=== PATIENT | male | born 1940 | race Caucasian/White ===

== ENCOUNTER 2016-07-28 20:26 | Emergency (ER) | payer MEDICARE, BC ==
[2016-07-28 20:48] VITALS: BP 144/64
[2016-07-28] MEDS ORDERED: Acetaminophen TAB* 325 MG PO ONE (21:09)
--- NOTE | 2016-07-28 21:15 | UC ---
Upper Extremity HPI - HPI Summary HPI Summary: Patient fell when he misjudged a step, caught himself with the left arm, deformity and swelling noted. he also landed on the left knee. he is moving it and denies any pain. minor abrasion noted. - History of Current Complaint Chief Complaint: UCUpperExtremity Stated Complaint: HAND INJURY Time Seen by Provider: 07/28/16 21:08 Hx Obtained From: Patient ?: No Onset/Duration: Sudden Onset, Lasting Hours Severity Initially: Severe Severity Currently: Severe Location Of Pain: Is Discrete @ - wrist Character: Aching, Throbbing, Spasmodic Aggravating Factor(s): Movement Alleviating Factor(s): Ice Associated Signs And Symptoms: Positive: Swelling, Bruising, Weakness - Allergies/Home Medications Allergies/Adverse Reactions: Allergies Allergy/AdvReac Type Severity Reaction Status Date / Time No Known Allergies Allergy Verified 07/28/16 20:48 PMH/Surg Hx/FS Hx/Imm Hx Previously Healthy: Yes - Surgical History Surgical History: Yes Surgery Procedure, Year, and Place: 1988-GALLBLADDER REMOVED[place]. 1969- REPAIR FX ANKLE WITH PLATING- [place]. 1951-REPAIR OF FRACTURED LEG- [place] - Family History Known Family History: Negative: Cardiac Disease, Hypertension - Social History Alcohol Use: Weekly Alcohol Amount: 10 BEERS PER WEEK Substance Use Type: None Smoking Status (MU): Former Smoker Amount Used/How Often: 1 PPD X 50 YEARS Have You Smoked in the Last Year: No When Did the Patient Quit Smoking/Using Tobacco: 2010 Review of Systems Constitutional: Negative Skin: Bruising Eyes: Negative ENT: Negative Respiratory: Negative Cardiovascular: Negative Gastrointestinal: Negative Genitourinary: Negative Motor: Negative Musculoskeletal: Arthralgia, Decreased ROM, Edema, Myalgia Neurological: Negative, Headache All Other Systems Reviewed And Are Negative: Yes Physical Exam Triage Information Reviewed: Yes Appearance: Well-Nourished, Ill-Appearing, Pain Distress Vital Signs: Initial Vital Signs Temp 98.8 F 07/28/16 20:40 Pulse 62 07/28/16 20:40 Resp 18 07/28/16 20:40 BP 144/64 07/28/16 20:40 Pulse Ox 95 07/28/16 20:40 Vital Signs Reviewed: Yes Eye Exam: Normal Eyes: Positive: Conjunctiva Clear ENT Exam: Normal Dental Exam: Normal Neck exam: Normal Respiratory Exam: Normal Respiratory: Positive: Chest non-tender, Lungs clear, Normal breath sounds Cardiovascular Exam: Normal Cardiovascular: Positive: RRR, No Murmur, Pulses Normal Abdominal Exam: Normal Abdomen Description: Positive: Nontender, No Organomegaly, Soft Bowel Sounds: Positive: Present Musculoskeletal: Positive: Strength Limited @ - in left wrist and fingers, ROM Limited @ - in left wrist in all directions, finger motion also limited, Edema @ - over the radial head, Other: - good sensation and color knee motion is unaffected. no swelling or deformity noted Neurological Exam: Normal Neurological: Positive: Alert, Muscle Tone Normal Psychological Exam: Normal Skin: Positive: Other - abraision to left knee Upper Extremity Course/Dx - Course Course Of Treatment: hx obtained, exam performed, meds reviewed, xray obtained no fracture - Differential Dx/Diagnosis Differential Diagnosis/HQI/PQRI: Strain, Sprain Provider Diagnoses: wrist injury, medial wrist sprain of left arm Discharge - Discharge Plan Condition: Stable Disposition: HOME Patient Education Materials: Wrist Injury (ED) Additional Instructions: 1. use the jerry wrap for reduction of swelling. brace for pain and support. 2. Continue to use tylenol and ice for pain and fever. 3. Follow up if not improving.
--- NOTE | 2016-07-28 21:37 | RAD ---
HISTORY: Swelling, fall, swelling, pain COMPARISONS: None VIEWS: 4, Frontal, lateral, and oblique views of the left wrist FINDINGS: BONE DENSITY: Normal. BONES: There is no displaced fracture. 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 There is osteoarthritis of the radiocarpal articulation and the distal radioulnar articulation. There is osteoarthritis of the first MCP joint ALIGNMENT: There is no dislocation. SOFT TISSUES: Unremarkable. OTHER FINDINGS: None. IMPRESSION: OSTEOARTHRITIS. NO ACUTE OSSEOUS INJURY. IF SYMPTOMS PERSIST, RECOMMEND REPEAT IMAGING.
== END 2016-07-28 21:54 | disposition home or self-care (01) ==
LOC: UCCORT 20:26
DX: S80.212A Abrasion, left knee, initial encounter (principal); S63.502A Unspecified sprain of left wrist, initial encounter; W10.9XXA Fall (on) (from) unspecified stairs and steps, initial encounter; Y93.9 Activity, unspecified; Y92.9 Unspecified place or not applicable; Y99.9 Unspecified external cause status; Z87.891 Personal history of nicotine dependence
CPT/HCPCS: 99213; A9270-GY; G0463

== ENCOUNTER 2018-05-20 11:05 | Emergency (ER) | payer MEDICARE, BC ==
--- NOTE | 2018-05-20 11:36 | UC ---
Dizzy HPI HPI Summary: hypotensive since this morning had hid meds this morning , felt lightheaded after one hr checked his bp was 108/60 denies any chest pain , no palpitation hx of afib cardioverted in [place] a few months ago, no fever, no chills - History Of Current Complaint Chief Complaint: UCGeneralIllness Stated Complaint: LOW BP Time Seen by Provider: 05/20/18 11:18 Hx Obtained From: Patient Onset/Duration: Gradual Onset, Lasting Hours - 2, Resolved Timing: Constant Severity Initially: Moderate Severity Currently: None Pain Intensity: 0 Character: Lightheaded Aggravating Factor(s): Nothing Alleviating Factor(s): Nothing Associated Signs And Symptoms: Negative: Nausea, Vomiting, Diaphoresis, Tinnitus , Chest Pain, SOB, Palpitations, Unsteady Gait, Visual Changes, Decreased Oral Intake, Change In Medication, Change In Diet, OTC Medications - Risk Factors Cardiac Risk Factors: Hypertension - Allergies/Home Medications Allergies/Adverse Reactions: Allergies Allergy/AdvReac Type Severity Reaction Status Date / Time No Known Allergies Allergy Verified 05/20/18 11:07 Home Medications: Home Medications Apixaban* [Eliquis*] 5 mg PO BID 05/20/18 [History Confirmed 05/20/18] PMH/Surg Hx/FS Hx/Imm Hx - Additional Past Medical History Additional PMH: cardioverted in [place] a few months ago, Cardiovascular History: Hypertension, Atrial Fibrillation - Surgical History Surgical History: Yes Surgery Procedure, Year, and Place: 1988-GALLBLADDER REMOVED-[place]. 1969- REPAIR FX ANKLE WITH PLATING- [place]. 1951-REPAIR OF FRACTURED LEG- [place] - Family History Known Family History: Negative: Cardiac Disease, Hypertension - Social History Alcohol Use: Weekly Alcohol Amount: 3 cans/ 3 times per week Substance Use Type: None Smoking Status (MU): Former Smoker Amount Used/How Often: 1 PPD X 50 YEARS Have You Smoked in the Last Year: No When Did the Patient Quit Smoking/Using Tobacco: 2010 Review of Systems All Other Systems Reviewed And Are Negative: Yes Constitutional: Positive: Negative Skin: Positive: Negative Eyes: Positive: Negative ENT: Positive: Negative Cardiovascular: Positive: Negative. Negative: Palpitations, Chest Pain Neurological: Positive: Weakness Is Patient Immunocompromised?: No Physical Exam Triage Information Reviewed: Yes Appearance: Well-Appearing, No Pain Distress, Obese Vital Signs: Initial Vital Signs Temp 97.6 F 05/20/18 11:09 Pulse 70 05/20/18 11:09 Resp 20 05/20/18 11:09 BP 146/77 05/20/18 11:09 Pulse Ox 97 05/20/18 11:09 Vital Signs Reviewed: Yes Eye Exam: Normal Eyes: Positive: Conjunctiva Clear ENT: Positive: Normal ENT inspection, Hearing grossly normal, Pharynx normal Neck: Positive: Supple, Nontender, No Lymphadenopathy Respiratory: Positive: Chest non-tender, Lungs clear, Normal breath sounds Cardiovascular: Positive: No Murmur, Bradycardia, Other: - irrigulay beats Abdominal Exam: Normal Abdomen Description: Positive: Nontender, Soft Bowel Sounds: Positive: Present Neurological: Positive: Alert Skin Exam: Normal Diagnostics - EKG Cardiac Rate: Bradycardia Ectopy: None ST Segment: Normal Dizzy Course/Dx - Course Course Of Treatment: will have the pt. go to [facility] ED for evaluation and tx - Differential Dx/Diagnosis Provider Diagnosis: Bradycardia Discharge - Sign-Out/Discharge Documenting (check all that apply): Patient Departure All imaging exams completed and their final reports reviewed: No Studies - Discharge Plan Condition: Good Disposition: TRANS HIGHER LVL OF CARE FAC Referrals: Mayank Menjivar MD [Primary Care Provider] - - Billing Disposition and Condition Condition: GOOD Disposition: Trans Higher Lvl of Care Fac
[2018-05-20 11:49] VITALS: BP 136/70
== END 2018-05-20 11:55 | disposition short-term general hospital (02) ==
LOC: UCEAST 11:05
DX: R00.1 Bradycardia, unspecified (principal); I10 Essential (primary) hypertension; I48.91 Unspecified atrial fibrillation; Z87.891 Personal history of nicotine dependence
CPT/HCPCS: 93005; 99212; G0463

== ENCOUNTER 2018-05-20 12:14 | Observation (INO) | payer MEDICARE, BC ==
--- NOTE | 2018-05-20 12:37 | ED ---
Palpitations / Dysrhythmia - HPI Summary HPI Summary: A 78 y/o male accompanied by his presents to [facility] with a chief complaint of a low heart rate while at urgent care earlier today. Per , the patients pulse was 44 bpm. They also report that the patients BP was low. The patient reports that he was lightheaded and dizzy intermittently for about one week. He also states that he feels tingling. He denies CP, SOB or nausea. Per , the patient had a cardioversion at [facility] for A-flutter 02/20/18. The patient is taking Eliquis. - History of Current Complaint Chief Complaint: EDDysrhythmPalp Hx Obtained From: Patient, Family/[place] Onset/Duration: Sudden Onset, Lasting Days, Still Present Timing: Intermittent Episodes Lasting: - intermittent episodes of dizziness/ lightheadedness for a week, low HR and BP earlier today. Severity Initially: Mild Severity Currently: Mild Character: Slow Aggravating: Nothing Alleviating: Nothing Associated Signs & Symptoms: Negative - CP, SOB, N/V, Lightheadedness, Dizzy - Allergy/Home Medications Allergies/Adverse Reactions: Allergies Allergy/AdvReac Type Severity Reaction Status Date / Time No Known Allergies Allergy Verified 05/20/18 12:20 Home Medications: Home Medications Acetaminop/Codeine 30 MG TAB* [Tylenol/Codeine 30 MG TAB*] 1 tab PO Q6HR PRN 06/04 [History Confirmed 05/20/18] Irbesartan (NF) [Avapro (NF)] 300 mg PO DAILY 05/20/18 [History Confirmed ] PMH/Surg Hx/FS Hx/Imm Hx Cardiovascular History: Reports: Hx Hypertension, Other Cardiovascular Problems/ Disorders - AV BLOCK Respiratory History: Denies: Hx Asthma, Hx Chronic Obstructive Pulmonary Disease (COPD) Sensory History: Reports: Hx Contacts or Glasses - GLASSES Denies: Hx Hearing Aid Opthamlomology History: Reports: Hx Contacts or Glasses - GLASSES Psychiatric History: Reports: Hx Anxiety - NO MEDICATION FOR - Cancer History Cancer Type, Location and Year: SKIN - Surgical History Surgery Procedure, Year, and Place: 1988-GALLBL[place]DER REMOVED[place]. 1969- REPAIR FX ANKLE WITH PLATING- [place]. 1951-REPAIR OF FRACTURED LEG- [place] Hx Anesthesia Reactions: No Infectious Disease History: No Infectious Disease History: Denies: Traveled Outside the [place] in Last 30 Days - Family History Known Family History: Negative: Cardiac Disease, Hypertension - Social History Alcohol Use: Weekly Alcohol Amount: 3 cans/ 3 times per week Substance Use Type: Reports: None Smoking Status (MU): Former Smoker Amount Used/How Often: 1 PPD X 50 YEARS Have You Smoked in the Last Year: No Review of Systems Negative: Fever Positive: Other - positive: low heart rate DIETETIC TECH. Negative: Chest Pain Negative: Shortness Of Breath Positive: Nausea Neurological: Other - positive: lightheadedness, dizziness Positive: Paresthesia All Other Systems Reviewed And Are Negative: Yes Physical Exam - Summary Physical Exam Summary: VITAL SIGNS: Reviewed. GENERAL: Patient is a well-developed and nourished MALE who is lying comfortable in the stretcher. Patient is not in any acute respiratory distress. HEAD AND FACE: No signs of trauma. No ecchymosis, hematomas or skull depressions. No sinus tenderness. EYES: PERRLA, EOMI x 2, No injected conjunctiva, no nystagmus. EARS: Hearing grossly intact. Ear canals and tympanic membranes are within normal limits. MOUTH: Oropharynx within normal limits. NECK: Supple, trachea is midline, no adenopathy, no JVD, no carotid bruit, no c- spine tenderness, neck with full ROM. CHEST: Symmetric, no tenderness at palpation LUNGS: Clear to auscultation bilaterally. No wheezing or crackles. CVS: Regular rate and rhythm, S1 and S2 present, no murmurs or gallops appreciated. ABDOMEN: Soft, non-tender. No signs of distention. No rebound no guarding, and no masses palpated. Bowel sounds are normal. EXTREMITIES: FROM in all major joints, no edema, no cyanosis or clubbing. NEURO: Alert and oriented x 3. No acute neurological deficits. Speech is normal and follows commands. SKIN: Dry and warm Triage Information Reviewed: Yes Vital Signs On Initial Exam: Initial Vitals Temp Pulse Resp BP Pulse Ox 97 F 54 16 145/96 96 05/20/18 12:15 05/20/18 12:15 05/20/18 12:15 05/20/18 12:15 05/20/18 12:15 Vital Signs Reviewed: Yes - Eland Coma Scale Best Eye Response: 4 - Spontaneous Best Motor Response: 6 - Obeys Commands Best Verbal Response: 5 - Oriented Coma Scale Total: 15 Diagnostics - Vital Signs Vital Signs Temp Pulse Resp BP Pulse Ox 05/20/18 12:15 97 F 54 16 145/96 96 - Laboratory Result Diagrams: 05/20/18 13:07 05/20/18 13:07 Lab Statement: Any lab studies that have been ordered have been reviewed, and results considered in the medical decision making process. - CT Brain CT Interpretation Completed By: Radiologist Summary of CT Findings: NO EVIDENCE FOR ACUTE INTRACRANIAL ABNORMALITY. ED physician has reviewed this imaging report. - EKG 12:27 Cardiac Rate: NL - 68 bpm EKG Rhythm: Sinus Rhythm Summary of EKG Findings: NSR at 68 bpm, no ST elevations, with PVCs, Prolonged NJ interval Course/Dx - Course Assessment/Plan: This patient is a 78-year-old male who presents to the emergency department with chief complaint having dizziness, shortness of breath and feeling that he is going to pass out. Patient went to the urgent care with he was found to be bradycardic. They report 40 bpm. Test results without any significant abnormality except for an INR 1.17, PTT of 42, glucose is 109. Head CT shows no evidence for acute intracranial abnormality. EKG is a normal sinus rhythm at 60 bpm with first-degree block and occasional PVCs. I discussed the EKG with Dr. Villa that he agrees with the interpretation. Because of the symptoms present I discussed my physical exam and findings with Dr. Khalil from the hospital services was accepted the patient for admission. The patient is hemodynamically stable alert and oriented 3. - Diagnoses Provider Diagnoses: Symptomatic bradycardia - Physician Notifications Discussed Care Of Patient With: Mohit Villa Time Discussed With Above Provider: 12:43 Instructed by Provider To: Other - Agrees that patient has a first degree block but nothing else. Discharge - Sign-Out/Discharge Documenting (check all that apply): Patient Departure - admit Patient Received Moderate/Deep Sedation with Procedure: No - Discharge Plan Condition: Fair Disposition: ADMITTED TO [facility] - Billing Disposition and Condition Condition: FAIR Disposition: Admitted to [facility] - Attestation Statements Document Initiated by Scribe: Yes Documenting Scribe: Anthony Joel Provider For Whom Scribe is Documenting (Include Credential): Td Cool MD Scribe Attestation: I, Anthony Joel, scribed for Td Cool MD on 05/20/18 at 1826. Scribe Documentation Reviewed: Yes Provider Attestation: The documentation as recorded by the noheliaibartemio, Anthony Joel accurately reflects the service I personally performed and the decisions made by me, Td Cool MD Status of Scribe Document: Viewed Consult Consult: At 14:[address] Khalil, hospitalist, who accepted the patient for admission.
[2018-05-20 13:22] LABS: ABS Basophils 0.1 10^3/ul (0-0.2); ABS Eosinophils 0.1 10^3/ul (0-0.6); ABS Lymphocytes 0.8 10^3/ul (1.0-4.8); ABS Monocytes 0.5 10^3/ul (0-0.8); ABS Neutrophils 5.8 10^3/ul (1.5-7.7); ABS Nucleated RBC 0 10^3/ul; Eosinophil % 1.7 %; Hematocrit 41 % (36-46); Hemoglobin 13.7 g/dL (14.0-18.0); Lymphocyte % 11.2 %; Mean Corpuscular HGB Conc 34 g/dL (31-36); Mean Corpuscular Hemoglobin 28 pg (27-31); Mean Corpuscular Volume 83 fL (80-94); Nucleated Red Blood Cells % 0.2; Platelet Count 297 10^3/uL (150-450); Red Blood Count 4.88 10^6 /uL (4.18-5.48); Red Cell Distribution Width 16 % (10.5-15); White Blood Count 7.3 10^3/uL (3.5-10.8)
[2018-05-20 13:39] LABS: Albumin 3.9 g/dL (3.2-5.2); Albumin/Globulin Ratio 1.4 (1-3); BUN/Creatinine Ratio 13.8 (8-20); Calcium 9.4 mg/dL (8.6-10.3); EGFR African American 144.1 (>60); EGFR Non-African American 119.1 (>60); Globulin 2.8 g/dL (2-4); Magnesium 2.1 mg/dL (1.9-2.7); Potassium 4.1 mmol/L (3.5-5.0); Total Bilirubin 0.7 mg/dL (0.2-1.0); Total Protein 6.7 g/dL (6.4-8.9)
[2018-05-20 13:41] LABS: Activated Partial Thrombo Time 42.2 seconds (26.0-36.3); INR 1.17 (0.77-1.02)
[2018-05-20 13:44] LABS: CKMB ng/mL 0.8 ng/mL (0.6-6.3)
[2018-05-20] MEDS ORDERED: Magnesium Hydroxide LIQ* 30 ML UDC PO PRN (14:56)
[2018-05-20] MEDS ORDERED: Acetaminophen TAB* 325 MG PO PRN (14:56)
[2018-05-20] MEDS ORDERED: Acetaminop/Codeine 30 MG TAB* 1 TAB (300 MG/30 MG) PO PRN (15:00)
--- NOTE | 2018-05-20 16:23 | HP ---
CC: Dr. Mayank Menjivar; Dr. Leo Villa, Cardiology * ADMISSION HISTORY AND PHYSICAL: DATE OF ADMISSION: 05/20/18 PRIMARY CARE PROVIDER: Dr. Mayank Menjivar. ATTENDING FOR THIS ADMISSION: Dr. Jacob Khalil.* (DICTATED BY MIRANDA HAYNES NP) CHIEF COMPLAINT: Dizziness, hypotension, and bradycardia. HISTORY OF PRESENT ILLNESS: This is a very pleasant 78-year-old male patient who felt dizzy and lightheaded after taking his morning medications. He checked his blood pressure at home and it was 108/60, which is very low for him and this was approximately 1 hour after taking his morning meds. He went to urgent care to be evaluated as the patient does have history of atrial fibrillation and had recently been cardioverted in February. At urgent care, the patient was found to be bradycardic and was sent to the emergency department for evaluation. In the ED, the patient was with a heart rate in the 40s, appeared to possibly have some pauses versus a heart block. He definitely has a first-degree heart block. It is questionable whether the patient was going into a second-degree heart block and symptomatic from these changes. For these reasons, we were asked to evaluate the patient for observation admission. PAST MEDICAL HISTORY: Significant for hypertension, atrial fibrillation. PAST SURGICAL HISTORY: Significant for cholecystectomy in 1988, ankle fracture with plating in 1969, and also his recent cardioversion in February. The patient had 9 teeth extracted 1 week ago. HOME MEDICATIONS: 1. Tylenol with Codeine 1 tab p.o. q.6 hours as needed. 2. Hytrin cap 1 mg p.o. in the morning. 3. Metoprolol succinate XL 50 mg p.o. daily. 4. Irbesartan 300 mg p.o. daily. 5. Atorvastatin 20 mg daily. 6. Apixaban 5 mg p.o. b.i.d. ALLERGIES: No known drug allergies. FAMILY HISTORY: Some uncles with strokes. No reported medical history for his mother or his father. SOCIAL HISTORY: The patient drinks alcohol recreationally. Was a former smoker , 1 pack per day for 50 years, quit in 2010. Denies any illicit drug use. He lives at home with his , Katina, who is his healthcare proxy. REVIEW OF SYSTEMS: At this time, the patient still feels moderately dizzy, but denies any fever, fatigue, or chills. No shortness of breath, no chest pains. No abdominal pain, no nausea, no vomiting, and no further constitutional complaints. PHYSICAL EXAMINATION GENERAL: The patient is awake, alert, in no acute distress. VITAL SIGNS: Blood pressure 122/62, heart rate is variable between 53 and 63, respiratory rate 18, O2 saturation is 96% on room air, temperature is 97.0. HEENT: The patient is atraumatic, normocephalic. PERRLA with nonicteric sclerae. He does wear glasses. Oral mucosa is moist. Tongue is midline. NECK: Supple, nontender. No JVD noted. No thyromegaly appreciated and no carotid bruit auscultated. LUNGS: Clear bilaterally to auscultation, slightly diminished at the bases. Otherwise, no adventitious breath sounds noted. CARDIOVASCULAR: S1, S2 present. Rate is bradycardic. Rhythm is regular. No murmurs, gallops, or rubs noted. ABDOMEN: Soft, nontender, and nondistended. Moderately obese. Positive bowel sounds in all 4 quadrants. No organomegaly noted. : Deferred. MUSCULOSKELETAL: There is no clubbing, no cyanosis, no edema. He has +2 distal pulses palpable, full range of motion, steady gait. Gross motor and sensation are intact. NEUROLOGIC: He is grossly intact with no focal deficits. PSYCHIATRIC: Cooperative and appropriate. DIAGNOSTIC STUDIES/LAB DATA: WBCs 7.3, RBCs 4.88, hemoglobin 13.7, hematocrit 41, platelets are 297. Sodium 138, potassium 4.1, chloride 105, CO2 of 27, BUN 9, creatinine 0.65, GFR is 119.1, glucose 109, lactic acid 0.8, calcium 9.4, magnesium 2.1. Bilirubin 0.70, AST 15, ALT 14, alk phos 98. Total creatine kinase 23, CK-MB is 0.8, troponin is negative at 0.00. Total protein 6.7, albumin 3.9, globulin 2.8, albumin/globulin ratio is 1.4. TSH is pending. INR is 1.17. Imaging: CT of the brain shows no acute intracranial process. Chest x-ray shows some stigmata of obstructive lung disease changes, but is otherwise clear. His last EKG at approximately 1 o'clock today showed him back in sinus rhythm with a ventricular trigeminy, prolonged AK interval. IMPRESSION: Mr. Goodman is a 78-year-old male patient with history of atrial fibrillation, who now presents with bradycardia and dizziness. PLAN: The patient will be admitted to observation service. 1. Bradycardia and dizziness. The 3 EKGs that were performed in the emergency department initially did show some significant bradycardia and a first-degree heart block. At that point, we were questioning whether the patient actually had a second-degree heart block prior to arrival. I have reached out to Dr. Villa of Cardiology, who has evaluated the EKGs. At this point, his symptoms may just be related to his beta-autumn, which will be held. We can restart beta-autumn at half in the dose tomorrow and continue to monitor the patient's heart rate and blood pressure. 2. History of hypertension. He will be continued on his home medications, but again holding the metoprolol. 3. History of hyperlipidemia. Continue his Lipitor daily. 4. History of paroxysmal atrial fibrillation. The patient will be continued on Eliquis for anticoagulation. 5. Diet: Heart-healthy, caffeine okay as tolerated. 6. Activity: Ambulate as tolerated. 7. Consults: Dr. Leo Villa of Cardiology. The rest of the patient's course will be determined by further diagnostics, laboratories, and any other input from other providers as warranted during this admission. We will continue to monitor the patient overnight and appreciate any further recommendations from Cardiology. Also of note, we have requested records from [facility] of the patient's most recent echo, stress test, and cardioversion in February. Per the patient's report, his nuclear stress and echo were both normal, so at this point, we should not have to repeat those exams. We will evaluate the reports when they are available. MIRANDA HAYNES, GENIE [id number]/[facility] #: [id number] [place]
[2018-05-20 16:39] LABS: Urine Appearance Clear; Urine Bilirubin Negative (Negative); Urine Blood Negative (Negative); Urine Color Yellow; Urine Glucose Negative (Negative); Urine Ketones Negative (Negative); Urine Nitrite Negative (Negative); Urine Protein Negative (Negative); Urine Specific Gravity 1.016 (1.010-1.030); Urine Urobilinogen Negative (Negative)
--- NOTE | 2018-05-20 17:39 | CONS ---
CC: Hospitalist Service; Dr. Menjivar; Dr. Smith; Dr. Villa * CARDIOLOGY CONSULT: DATE OF CONSULT: 05/20/18 HISTORY OF PRESENT ILLNESS: The patient is a 78-year-old male patient, who followed up with Dr. Smith from cardiology standpoint, had atrial fibrillation, was found incidental finding and then had cardioversion as per the patient's history by [facility] in February 2018. According to the patient and the family, he had full cardiac evaluation including echocardiogram and nuclear stress test and was told "they were normal." He had no history of chest pain and no shortness of breath, no syncope. He does have history of hypertension as well as history of hyperlipidemia and he is on medical treatment. He gives no history of myocardial infarction. He gives no history of congestive heart failure. He gives no palpitations, no irregularity. He gives no fever, no chills, no nausea, no vomiting, no hematochezia, no skin rash , no abdominal pain, no orthopnea is appreciated. No swelling in the lower extremities. Today, according to the patient, he felt "off." There is some dizziness, but overall he said he did not feel well. They took blood pressure at home and it was low at 108. He was advised to go to the [facility] and it was found his heart rate is slow in the 40s. No syncope. There were some concerns about the first-degree AV block on EKG. He came into the emergency room and then subsequently he was admitted for further observation. He feels much better since his presentation now. PAST SURGICAL HISTORY: Includes history of cholecystectomy in 1988 and ankle fracture in the past and cardioversion in February 2018. MEDICATIONS AT HOME: Include: 1. Hytrin 1 mg in the morning. 2. Metoprolol XL 50 mg daily. 3. Irbesartan 300 mg daily. 4. Lipitor 20 mg daily. 5. Eliquis 5 mg twice a day. ALLERGIES: No known drug allergies. FAMILY HISTORY: There is no family history of premature coronary artery disease. SOCIAL HISTORY: He drinks alcohol socially. He used to smoke, he quit about 7 years ago according to the patient. No history of illicit drug use. He lives with his . REVIEW OF SYSTEMS: His review of all other systems essentially is negative. PHYSICAL EXAM: On exam, he is awake, alert, and oriented. He is not in acute distress. He had no cardiac symptoms at the moment. Vitals: Blood pressure is 120/60, he is in sinus rhythm, his heart rate is ranging in the 50s to the 60s, he is afebrile. Ears, Nose, and Throat: Essentially benign. Neck: Supple. JVP is not elevated. No carotid bruits. No masses in the neck are appreciated. Chest: Clear to auscultation. No rales, no wheeze. No added sounds appreciated. Heart: Normal S1, S2. No added sounds. No gallops, no rubs. Abdomen: Benign, soft. Positive bowel sounds. Extremities: No edema, no cyanosis, and no clubbing. Skin exam is normal. Psych: Normal affect and mood. 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 DIAGNOSTIC STUDIES/LAB DATA: He has multiple EKGs. They show sinus rhythm, sinus bradycardia. First-degree AV block definitely is there. Multiple PACs and PVCs are there, a questionable dropped beat that was after a PVC. His labs showed the following: His labs from today, white blood cell 7.3, hemoglobin 13.7, hematocrit 41, platelets 297. His sodium 138, potassium 4.1, BUN 9, creatinine 0.65. LFTs normal. Troponin 0. TSH normal at 1. Magnesium 2.1. His PTT 42.2. IMPRESSION: The patient is a 78-year-old male patient with: 1. Presentation of not feeling well with hypotension and bradycardia. 2. Resting sinus bradycardia with definitely first-degree atrioventricular block and some occasional premature atrial contractions, premature ventricular contractions. Cannot ruled out a dropped beat after his premature ventricular contraction. 3. History of atrial fibrillation, incidental finding, cardioversion February 2018. 4. Systemic arterial hypertension. 5. Obesity. 6. Hyperlipidemia. 7. As per the patient's history, had cardiac evaluation in February by an echo and nuclear Myoview stress test and was told "normal." PLAN: I discussed with the hospitalist service. I agree with hospitalization and monitoring on the telemetry monitoring for any significant second or third- degree AV block. I advised holding his beta-autumn, metoprolol for now and reevaluate. His thyroid, TSH, electrolytes are within normal limits. Stay hydrated. Keep a close eye on his blood pressure accordingly and we will obtain the records from [facility] for his cardiac evaluation. I answered all their concerns and questions up to their satisfaction. TIME SPENT: More than half of at least 60 to 65 plus minutes was in the education and counseling mode, [id number], evaluating the above, and making further recommendations. [id number]/CPS #: [id number] ELEANOR
[2018-05-20] MEDS: Apixaban* 5 MG TAB PO SCH (20:21)
--- NOTE | 2018-05-21 00:26 | PN ---
Progress Note - Progress Note Date of Service: 05/21/18 Note: Per RN continuing to drop a beat infrequently. Per cards recommendation will d/ c betablocker for now.
[2018-05-21] MEDS ORDERED: Metoprolol Succinate XL TAB* 25 MG PO SCH ×2 (09:00→12:02)
[2018-05-21] MEDS ORDERED: Atorvastatin* 20 MG TAB PO SCH (09:00)
[2018-05-21] MEDS ORDERED: Terazosin CAP* 1 MG PO SCH (09:00)
[2018-05-21] MEDS ORDERED: Losartan TAB* 25 MG PO SCH (09:00)
[2018-05-21] MEDS: Apixaban* 5 MG TAB PO SCH (09:20)
--- NOTE | 2018-05-21 10:54 | PN ---
<Shannon Thao - Last Filed: 05/21/18 11:09> Subjective Date of Service: 05/21/18 - f/u for symptomatic bradycardia Interval History: no events last night, patient sitting in chair with and friend in room. He states he came in yesterday after feeling lightheaded and noting a pulse of 40 on his BP machine. He states symptoms have not reoccurred. heart rate has improved since Bblocker therapy has been held. no c/o chest pain. He states he occasionally he will get exertion chest tightness with walking but this has not occurred in a week. usually episode last < 1 min when it does occur. no c/o SOB , MITCHELL, palpitations, sensation of heart racing, edema. Medications Active Medications: Acetaminophen (Tylenol Tab*) 650 mg PO Q4H PRN PRN Reason: FEVER/PAIN Last Admin: 05/20/18 23:28 Dose: 650 mg Acetaminophen/Codeine Phosphate (Tylenol/Codeine 30 Mg Tab*) 1 tab PO Q6HR PRN PRN Reason: PAIN Apixaban (Eliquis*) 5 mg PO BID [facility] Last Admin: 05/21/18 09:20 Dose: 5 mg Atorvastatin Calcium (Lipitor*) 20 mg PO DAILY [facility] Last Admin: 05/21/18 09:21 Dose: 20 mg Losartan Potassium (Cozaar Tab*) 100 mg PO DAILY [facility] Last Admin: 05/21/18 09:21 Dose: 100 mg Magnesium Hydroxide (Milk Of Magnesia Liq*) 30 ml PO Q4H PRN PRN Reason: CONSTIPATION Terazosin HCl (Hytrin Cap*) 1 mg PO QAM [facility] Last Admin: 05/21/18 09:21 Dose: 1 mg Objective Vital Signs: Temp Pulse Resp BP Pulse Ox 97.5 F 86 20 134/72 98 05/21/18 08:08 05/21/18 08:08 05/21/18 08:08 05/21/18 08:08 05/21/18 08:08 Oxygen Devices in Use Now: None Appearance: sitting in chair, well nourished, NAD, A+O x3 Ears/Nose/Mouth/Throat: NL Teeth, Lips, Gums Neck: NL Appearance and Movements; NL JVP Respiratory: Symmetrical Chest Expansion and Respiratory Effort, Clear to Auscultation Cardiovascular: NL Sounds; No Murmurs; No JVD, No Edema Abdominal: NL Sounds; No Tenderness; No Distention Extremities: No Edema Skin: No Rash or Ulcers Neurological: Alert and Oriented x 3 Lines/Tubes/Other Access: Clean, Dry and Intact Peripheral IV Laboratory Results: 05/20/18 13:07 05/20/18 13:07 INR (Anticoag Therapy) 1.17 (0.77-1.02) H 05/20/18 13:07 APTT 42.2 seconds (26.0-36.3) H 05/20/18 13:07 Total Bilirubin 0.70 mg/dL (0.2-1.0) 05/20/18 13:07 AST 15 U/L (13-39) 05/20/18 13:07 ALT 14 U/L (7-52) 05/20/18 13:07 Alkaline Phosphatase 98 U/L (34-104) 05/20/18 13:07 CK-MB (CK-2) 0.8 ng/mL (0.6-6.3) 05/20/18 13:07 Total Protein 6.7 g/dL (6.4-8.9) 05/20/18 13:07 Albumin 3.9 g/dL (3.2-5.2) 05/20/18 13:07 Globulin 2.8 g/dL (2-4) 05/20/18 13:07 Albumin/Globulin Ratio 1.4 (1-3) 05/20/18 13:07 TSH 1.00 mcIU/mL (0.34-5.60) 05/20/18 13:07 05/20/18 05/20/18 05/20/18 13:07 16:17 19:57 Troponin I 0.00 0.01 0.00 Laboratory Results - last 24 hr 05/20/18 05/20/18 05/20/18 13:07 13:07 13:07 WBC 7.3 RBC 4.88 Hgb 13.7 L Hct 41 MCV 83 MCH 28 MCHC 34 RDW 16 H Plt Count 297 MPV 9.0 Neut % (Auto) 78.7 Lymph % (Auto) 11.2 [place] % (Auto) 7.5 Eos % (Auto) 1.7 Baso % (Auto) 0.9 Absolute Neuts (auto) 5.8 Absolute Lymphs (auto) 0.8 L Absolute Monos (auto) 0.5 Absolute Eos (auto) 0.1 Absolute Basos (auto) 0.1 Absolute Nucleated RBC 0 Nucleated RBC % 0.2 INR (Anticoag Therapy) 1.17 H APTT 42.2 H Sodium 138 Potassium 4.1 Chloride 105 Carbon Dioxide 27 Anion Gap 6 BUN 9 Creatinine 0.65 L Est GFR ( Amer) 144.1 Est GFR (Non-Af Amer) 119.1 BUN/Creatinine Ratio 13.8 Glucose 109 H Lactic Acid Calcium 9.4 Magnesium 2.1 Total Bilirubin 0.70 AST 15 ALT 14 Alkaline Phosphatase 98 Total Creatine Kinase 23 CK-MB (CK-2) 0.8 Troponin I 0.00 Total Protein 6.7 Albumin 3.9 Globulin 2.8 Albumin/Globulin Ratio 1.4 TSH 1.00 Urine Color Urine Appearance Urine pH Ur Specific [place] Urine Protein Urine Ketones Urine Blood Urine Nitrate Urine Bilirubin Urine Urobilinogen Ur Leukocyte Esterase Urine Glucose 05/20/18 05/20/18 05/20/18 13:07 16:17 16:25 WBC RBC Hgb Hct MCV MCH MCHC RDW Plt Count MPV Neut % (Auto) Lymph % (Auto) [place] % (Auto) Eos % (Auto) Baso % (Auto) Absolute Neuts (auto) Absolute Lymphs (auto) Absolute Monos (auto) Absolute Eos (auto) Absolute Basos (auto) Absolute Nucleated RBC Nucleated RBC % INR (Anticoag Therapy) APTT Sodium Potassium Chloride Carbon Dioxide Anion Gap BUN Creatinine Est GFR ( Amer) Est GFR (Non-Af Amer) BUN/Creatinine Ratio Glucose Lactic Acid 0.8 Calcium Magnesium Total Bilirubin AST ALT Alkaline Phosphatase Total Creatine Kinase CK-MB (CK-2) Troponin I 0.01 Total Protein Albumin Globulin Albumin/Globulin Ratio TSH Urine Color Yellow Urine Appearance Clear Urine pH 6.0 Ur Specific [place] 1.016 Urine Protein Negative Urine Ketones Negative Urine Blood Negative Urine Nitrate Negative Urine Bilirubin Negative Urine Urobilinogen Negative Ur Leukocyte Esterase Negative Urine Glucose Negative 05/20/18 19:57 WBC RBC Hgb Hct MCV MCH MCHC RDW Plt Count MPV Neut % (Auto) Lymph % (Auto) [place] % (Auto) Eos % (Auto) Baso % (Auto) Absolute Neuts (auto) Absolute Lymphs (auto) Absolute Monos (auto) Absolute Eos (auto) Absolute Basos (auto) Absolute Nucleated RBC Nucleated RBC % INR (Anticoag Therapy) APTT Sodium Potassium Chloride Carbon Dioxide Anion Gap BUN Creatinine Est GFR ( Amer) Est GFR (Non-Af Amer) BUN/Creatinine Ratio Glucose Lactic Acid Calcium Magnesium Total Bilirubin AST ALT Alkaline Phosphatase Total Creatine Kinase CK-MB (CK-2) Troponin I 0.00 Total Protein Albumin Globulin Albumin/Globulin Ratio TSH Urine Color Urine Appearance Urine pH Ur Specific [place] Urine Protein Urine Ketones Urine Blood Urine Nitrate Urine Bilirubin Urine Urobilinogen Ur Leukocyte Esterase Urine Glucose EKG Data: Todays ECg reviewed; NSR rate 64, [place] interval 303. Telemetry reviewed; frequent PVCs Sinus rhythm with prolonged [place] interval. rate currently in 70's ECG from 05/17/2018 at 1237; Sinus rhythm rate 64 [place] interval 293 and regular. there is ventricular trigeminy. Assessment/Plan #1 symptomatic bradycardia with prolonged [place] interval. No evidence of high degree AVB. Topprol 50/day has been held since admission. Heart rate did improve. Nocturnally he has bradycardia hear rate 40 with brief sinus pauses < 3 seconds. will arrange outpatient 30 day EM with primary varnish mixer Dr. Smith. he will need to f/u with him in 7-10 days. He denies recent adjustment in medications or over the counter medications. He has known AVB. #2 h/o AFL; In NSR. Chads Vasc 3 on Eliquis 5mg PO BID. He underwent successful CV 02/2018. TFTs normal. He is to f/u with Dr. Smith. He would likely benefit from VIGNESH evaluation. #3 h/o HTN; BP today 134/72 on Losartan 100mg/day. He had diastolic dysfunction noted on recent outpatient echo. Recommend aggressive BP control. #4 h/o HLD; On Lipitor therapy. #5 h/o PVCs. Bblocker to be reduced to 12.5mg/day. He is to have outpatient 30 day EM and f/u with primary varnish mixer. He had a low risk lexiscan stress test 03/09/2018 patient exercised for 4 minutes with resting HTN. Normal perfusion. troponin negative x3 during stay. k+ stable #6 disposition pending course. D/W Dr. Scott who agrees with plan of care. Will monitor on Telemetry after first dose of Toprol 12.5mg/day if tolerating will sign off and have him see primary varnish mixer ( Dr. Smith) with 30 day em to be arranged through [facility]. [facility] whom I personally spoke with on the phone today. He informed me that the EM will be mailed to his home. Per Dr. Smith the patient has already referral for Dr. Kemp for evaluation of VIGNESH Attending: Gary Scott <Gary Scott - Last Filed: 05/21/18 14:22> Medications Active Medications: Acetaminophen (Tylenol Tab*) 650 mg PO Q4H PRN PRN Reason: FEVER/PAIN Last Admin: 05/20/18 23:28 Dose: 650 mg Acetaminophen/Codeine Phosphate (Tylenol/Codeine 30 Mg Tab*) 1 tab PO Q6HR PRN PRN Reason: PAIN Apixaban (Eliquis*) 5 mg PO BID [facility] Last Admin: 05/21/18 09:20 Dose: 5 mg Atorvastatin Calcium (Lipitor*) 20 mg PO DAILY [facility] Last Admin: 05/21/18 09:21 Dose: 20 mg Losartan Potassium (Cozaar Tab*) 100 mg PO DAILY [facility] Last Admin: 05/21/18 09:21 Dose: 100 mg Magnesium Hydroxide (Milk Of Magnesia Liq*) 30 ml PO Q4H PRN PRN Reason: CONSTIPATION Metoprolol Succinate (Toprol Xl Tab*) 12.5 mg PO DAILY [facility] Last Admin: 05/21/18 12:18 Dose: 12.5 mg Terazosin HCl (Hytrin Cap*) 1 mg PO QAM [facility] Last Admin: 05/21/18 09:21 Dose: 1 mg Objective Vital Signs: Temp Pulse Resp BP Pulse Ox 97.5 F 86 20 134/72 98 05/21/18 08:08 05/21/18 08:08 05/21/18 08:08 05/21/18 08:08 05/21/18 08:08 Laboratory Results: 05/20/18 13:07 05/20/18 13:07 INR (Anticoag Therapy) 1.17 (0.77-1.02) H 05/20/18 13:07 APTT 42.2 seconds (26.0-36.3) H 05/20/18 13:07 Total Bilirubin 0.70 mg/dL (0.2-1.0) 05/20/18 13:07 AST 15 U/L (13-39) 05/20/18 13:07 ALT 14 U/L (7-52) 05/20/18 13:07 Alkaline Phosphatase 98 U/L (34-104) 05/20/18 13:07 CK-MB (CK-2) 0.8 ng/mL (0.6-6.3) 05/20/18 13:07 Total Protein 6.7 g/dL (6.4-8.9) 05/20/18 13:07 Albumin 3.9 g/dL (3.2-5.2) 05/20/18 13:07 Globulin 2.8 g/dL (2-4) 05/20/18 13:07 Albumin/Globulin Ratio 1.4 (1-3) 05/20/18 13:07 TSH 1.00 mcIU/mL (0.34-5.60) 05/20/18 13:07 05/20/18 05/20/18 05/20/18 13:07 16:17 19:57 Troponin I 0.00 0.01 0.00 Assessment/Plan Patient seen and chart reviewed and discussed with Ms. Thao and the patient and his . As above, patient seemed to have developed symptomatic bradycardia on his longstanding dose of metoprolol. This may reflect progression of his underlying sick sinus syndrome with paroxysmal atrial arrhythmias. I explained that we will reduce his dose of metoprolol to allow for an increased heart rate and avoid beta autumn withdrawal. However, he may need further adjustments of his medications and/or interventions (eg pacemaker implantation) depending on his clinical course. I suggested he followup with Dr. Smith for further evaluation and possible event monitor to guide recommendations. The plan was communicated to his outpatient varnish mixer. I also suggested he consider obtaining a home monitoring strategy such as Kardia to allow future documentation of rhythm during symptomatic episodes. More than half of the 40 minutes spend with the patient was face to face and in coordination of care.
[2018-05-21 16:17] VITALS: BP 133/63
--- NOTE | 2018-05-21 23:29 | DS ---
CC: Dr. Mayank Menjivar; Dr. Bib Smith * DISCHARGE SUMMARY: DATE OF ADMISSION: 05/20/18 DATE OF DISCHARGE: 05/21/18 PRIMARY CARE PROVIDER: Dr. Mayank Menjivar. DOOR TO DOOR FUNDRAISING COLLECTOR: Dr. Bib Smith. ATTENDING PHYSICIAN: Jennifer Mares MD * (dictated by Aylin Trinh NP). PRIMARY DIAGNOSES: 1. First-degree AV block. 2. Bradycardia. SECONDARY DIAGNOSES: 1. Hypertension. 2. Hyperlipidemia. 3. Paroxysmal atrial fibrillation. STUDIES WHILE IN THE HOSPITAL: 1. EKG on 05/20/18 showed sinus bradycardia with a rate of 41, frequent PVCs with questionable bigeminy. QTc 341. 2. Brain CT on 05/20/18 reads as no evidence for acute intracranial abnormality. 3. Chest x-ray on 05/20/18 reads as stigmata of obstructive lung disease. Minimal left basilar subsegmental atelectasis. 4. EKG on 05/20/18 showed normal sinus rhythm with a rate of 68, frequent PVCs , first-degree AV block, QTc 433. 5. EKG on 05/20/18 showed normal sinus rhythm with a rate of 64, frequent PVCs , first-degree AV block, QTc 428. 6. EKG on 05/21/18 showed normal sinus rhythm with a rate of 64, first-degree AV block, QTc 427. HISTORY OF PRESENT ILLNESS AND HOSPITAL COURSE: Mr. Goodman is a 78-year-old male with past medical history of hypertension and atrial fibrillation, status post cardioversion in February, who presented to the emergency room on 05/20/18 with complaints of dizziness, hypotension, and bradycardia. Please see the history and physical by Christina Staton NP for a complete summary of the events leading up to this hospitalization. In short, the patient checked his blood pressure at home and noted that it was 108/60, which is low for him. This was approximately 1 hour after taking his morning meds. He went to urgent care and was found to be bradycardic and was therefore sent to the emergency room. In the emergency room, he was noted to have bradycardia in the 40s, and there was concern for some pauses versus a high-degree heart block. There was a definite first-degree AV block. Because of his symptoms and arrhythmia, he was admitted by the hospitalist service. The patient had multiple EKGs as noted above. He was seen by Dr. Villa from Cardiology, who felt as though his EKG represented a first-degree AV block with occasional PACs and PVCs. He felt that a dropped beat could not be ruled out and recommended holding the patient's beta-autumn and ensuring his TSH and electrolytes were within normal limits. Cardiology records were obtained from [facility]. The patient was not noted to be bradycardic overnight and heart rate stayed primarily in the 60s. This morning, the patient has had no bradycardia. He was seen by Shannon Thao NP from Cardiology, who felt as though the patient would benefit from a 30-day EM with his cutting machine operator. She also recommended decreasing the patient's beta-blockers to 12.5 mg per day and monitoring during the day today to ensure the patient did not have any further bradycardia. The patient received 12.5 mg of metoprolol succinate today around noon. The patient has been monitored on telemetry and was not noted to have any bradycardia. He does have a consistent first-degree AV block and frequent PVCs and PACs, though heart rate has generally stayed between the 70s and 90s. Cardiology did indicate that if the patient did not have any bradycardia after taking the beta-autumn that he would be stable for discharge with close followup with his primary cutting machine operator. On exam this morning, the patient reported feeling well. Heart rate was regular. No murmurs, rubs, or gallops. He has been up ambulating without difficulty and has had no further dizziness. Mr. Goodman is stable for discharge today. Vital signs are as follows: Temp 98.4 , heart rate 83, respiratory rate 22, oxygen saturation 95% on room air, blood pressure 133/63. DISCHARGE MEDICATIONS: Changed medications: 1. Metoprolol succinate 12.5 mg p.o. daily (previously was 25 mg daily). Continued medications: 1. Acetaminophen/codeine 30 mg 1 tab p.o. q.6 hours p.r.n. pain. 2. Apixaban 5 mg p.o. b.i.d. 3. Atorvastatin 20 mg p.o. daily. 4. Irbesartan 300 mg p.o. daily. 5. Terazosin 1 mg p.o. daily. DISCHARGE PLAN: Mr. Goodman will be discharged home. Activity will be as tolerated. Diet should be heart healthy. Medications are noted above. Again, we have decreased the patient's metoprolol per cardiology recommendations. He can continue his other usual medications. He will need close followup with his cutting machine operator, and our cardiology team recommends an outpatient 30-day EM, an VIGNESH evaluation, and aggressive BP control. He should see Dr. Smith in 7 to 10 days. He should follow up with his primary care provider in 4 to 7 days. He has been instructed to return to the emergency room or nearest hospital for any worsening of symptoms, shortness of breath, lightheadedness, dizziness, chest discomfort, high fever, chills, night sweats, loss of consciousness or any other worrisome signs or symptoms. DISCHARGE CONDITION: Stable. DISCHARGE DISPOSITION: Home. This is a summarized report of a complex medical history and hospital stay. For further details, please see the entire medical record. TIME SPENT: Approximately 40 minutes was spent on this discharge. AYLIN TRINH NP [id number]/CPS #: [id number] ELEANOR
[2018-05-22] MEDS ORDERED: Metoprolol Succinate XL TAB* 25 MG PO SCH (09:00)
== END 2018-05-21 18:30 | disposition home or self-care (01) ==
LOC: ED 12:14 → MEDTELE 14:56 → UNDOADMOB 14:56 → MEDTELE 14:56 → INTOOBSV 14:56 → OBSVTOIN 05-21 12:03 → INTOOBSV 05-21 12:03
PROVIDERS: ADMIT Internal Medicine; ATTEND Internal Medicine
DX: I44.0 Atrioventricular block, first degree (principal); R00.1 Bradycardia, unspecified; I10 Essential (primary) hypertension; E78.5 Hyperlipidemia, unspecified; I48.0 Paroxysmal atrial fibrillation; R42 Dizziness and giddiness; Z87.891 Personal history of nicotine dependence; Z79.01 Long term (current) use of anticoagulants; I49.3 Ventricular premature depolarization; E66.9 Obesity, unspecified; Z98.890 Other specified postprocedural states; I48.91 Unspecified atrial fibrillation
CPT/HCPCS: 36415; 70450; 71045; 80053; 81003; 82550; 82553; 83605; 83735; 84443; 84484; 85025; 85610; 85730; 93005; 99284; A9270-GY; G0378

== ENCOUNTER 2019-03-27 12:14 | Emergency (ER) | payer MEDICARE, BC ==
[2019-03-27] MEDS ORDERED: Aspirin 81 mg CHEW TAB* 81 MG TAB.CHEW PO ONE (12:25)
[2019-03-27] MEDS ORDERED: NS 0.9% 1000 ML** 1,000 ML IV ONE (12:26)
--- OUTSIDE RECORDS SUMMARY | 2019-03-27 12:36 | XMS REPORT | Summary of Care ---
:1940 Author Organization [facility] Address [address] [address] Care Team Providers Name Role Phone Mayank Horton Primary Care Provider Sena Marmolejo RN Signallamp Barrel Straightener Unavailable Reason for Visit Reason Comments Labs Only f/u last done 03/01/19 Hypertension f/u BP Atrial Fibrillation f/u mcclintic seen this am; going to have ECHO done. Sleep Apnea f/u continues using cpap nightly with effect Encounter Details Date Type Department Care Team Description 03/10/2019 Office Visit [place] [facility] Mayank Horton, Hypercholesteremia ( Primary Dx); Medicine Essential hypertension; [address] [facility] Obstructive sleep apnea syndrome; [place] [address] ROAD Typical atrial flutter (HCC); [phone] [place] [address] Chronic obstructive pulmonary disease, unspecified COPD type ([facility]) [phone] Allergies No Known Allergiesdocumented as of this encounter (statuses as of 03/20/2019) Medications Medication Sig Dispensed Refills Start Date End Date Status hydrocortisone Place 1 Appl per 30 g 5 06/24/2012 Active (ANUSOL-HC) 2.5 % Rectal rectum NEEDED Cream (rectal irritation). colchicine (COLSALIDE) Take 1 Tab by 30 Tab 5 02/29/2016 Active 0.6 MG Oral mouth DAILY TabIndications: Gout of NEEDED (gout). right ankle, unspecified Take 1 pill cause, unspecified twice daily chronicity today and tomorrow, then 1 pill daily Candesartan Cilexetil 32 Take 1 Tab by 90 Tab 3 06/18/2018 Active MG Oral Tab mouth DAILY. terazosin (HYTRIN) 1 MG Take 1 Cap by 90 Cap 3 01/12/2019 Active Oral Cap mouth DAILY. apixaban (ELIQUIS) 5 MG Take 1 Tab by 180 Tab 3 01/27/2019 Active Oral TabIndications: mouth TWICE Atrial flutter, DAILY. unspecified type (HCC) atorvastatin (LIPITOR) TAKE 1 TABLET BY 90 Tab 4 03/04/2019 Active 20 MG Oral Tab MOUTH ONCE DAILY documented as of this encounter (statuses as of 03/20/2019) Active Problems Problem Noted Date Typical atrial flutter 03/09/2018 Essential hypertension 06/06/2016 Diverticulosis of large intestine without hemorrhage 06/06/2016 BMI 36.0-36.9,adult 09/17/2010 Overview: This patient's BMI has been calculated and is above average, and BMI management plan is completed. General patient education discussion including: obesity- related excess mortality, weight loss link to reduction of risk factors for cardiac and other diseases, importance of long- term maintenance treatment in weight loss and is managed by Muriel HORTON MD .referral to manager diesel is declined by the patient. Colon polyp 05/26/2007 Overview: Replaced inactive diagnosis Hypercholesteremia 05/26/2007 AVB (atrioventricular block) 05/26/2007 Internal hemorrhoid 05/26/2007 Chronic obstructive pulmonary disease Sleep apnea documented as of this encounter (statuses as of 03/20/2019) Resolved Problems Problem Noted Date Resolved Date Diverticulosis 05/26/2007 06/06/2016 HTN (hypertension) 05/26/2007 06/06/2016 Tobacco use disorder 05/26/2007 04/15/2012 BPH (benign prostatic hypertrophy) 05/26/2007 02/01/2009 Overview: Replaced inactive diagnosis documented as of this encounter (statuses as of 03/20/2019) Immunizations Name Administration Dates Next Due H1N1 Injectable Adult 02/01/2009 Influenza (IM) Preservative Free 11/11/2012, 11/17/2011, 10/29/2010 Influenza Vaccine 65 Yrs + 11/10/2018 Influenza Vaccine High Dose 10/20/2017, 11/22/2016, 11/21/2015, 11/22/2014, 12/02/2013 Influenza Vaccine Whole 12/06/2008, 11/30/2007 Influenza Virus Vaccine Pres Free 6-35 11/22/2009 Months PNEUMOCOCCAL POLYSACCHARIDE VACCINE 01/22/2016 Pneumococcal Conjugate(13 Valent) 05/09/2014 ZOSTER (ZOSTAVAX) VACCINE 05/07/2013 documented as of this encounter Social History Tobacco Use Types Packs/Day Years Used Date Former Smoker Quit: 12/31/2010 Smokeless Tobacco: Former User Chew Comments: 1 ppd Alcohol Use Drinks/Week oz/Week Comments Yes 0 Standard drinks or equivalent 0.0 6 beers 2-3 x a week Sex Assigned at Date Recorded Not on file Job Start Date Occupation Industry Not on file Not on file Not on file Travel History Travel Start Travel End No recent travel history available. documented as of this encounter Last Filed Vital Signs Vital Sign Reading Time Taken Comments Blood Pressure 132/68 03/10/2019 11:30 AM EST Pulse 60 03/10/2019 11:30 AM EST Temperature - - Respiratory Rate - - Oxygen Saturation - - Inhaled Oxygen Concentration - - Weight 125.6 kg (277 lb) 03/10/2019 11:30 AM EST Height - - Body Mass Index 37.57 03/10/2019 10:17 AM EST documented in this encounter Patient Instructions Patient InstructionsMayank Horton MD - 03/10/2019 11:00 AM ESTContinue same medicines follow up 4 months with labs first, as ordered documented in this encounter Progress Notes Mayank Horton MD - 03/10/2019 11:00 AM EST PATIENT: Dat Goodman : 1940 DATE OF SERVICE: 03/10/2019 CHIEF COMPLAINT: Chief Complaint Patient presents with Labs Only f/u last done 03/01/19 Hypertension f/u BP Atrial Fibrillation f/u mcclintic seen this am; going to have ECHO done. Sleep Apnea f/u continues using cpap nightly with effect Subjective HISTORY OF PRESENT ILLNESS: Dat Goodman is a 79-y.o. male. HPI Feeling better. Pulse and blood pressure are being monitored closely. There was some evidence of possible sick sinus disease and beta-autumn was discontinued. Has sleep apnea and he is using CPAP with good effect. Blood pressure under control. Had labs done recently as listed below, and results reviewed with patient. The results are satisfactory. Any abnormalities indicated are insignificant. Lab on 03/01/2019 Component Date Value Ref Range Status Cholesterol 03/01/2019 112 <200 mg/dl Final HDL Cholesterol 03/01/2019 34* >40 mg/dl Final Triglycerides 03/01/2019 52 <150 mg/dl Final LDL Cholesterol 03/01/2019 68 <100 MG/DL Final Cholesterol / HDL Ratio 03/01/2019 3.3 RATIO Final LDL / HDL Ratio 03/01/2019 2.0 Final Non-HDL Cholesterol 03/01/2019 78 0 - 130 MG/DL Final Patient Fastin03/01/2019 Yes Final Sodium 03/01/2019 143 134 - 145 mmol/L Final Potassium 03/01/2019 4.3 3.5 - 5.1 mmol/L Final Chloride 03/01/2019 107 98 - 107 mmol/L Final CO2 03/01/2019 27 22 - 30 mmol/L Final Calcium 03/01/2019 9.4 8.3 - 10.1 mg/dl Final Albumin 03/01/2019 4.1 3.5 - 5.0 g/dl Final BUN 03/01/2019 14 9 - 20 mg/dl Final Creatinine 03/01/2019 0.6* 0.8 - 1.5 mg/dl Final Glucose 03/01/2019 107* 70 - 99 mg/dl Final Total Protein 03/01/2019 7.2 6.3 - 8.2 g/dl Final Total Bilirubin 03/01/2019 0.8 0.0 - 1.1 MG/DL Final AST 03/01/2019 36 17 - 59 U/L Final ALT 03/01/2019 30 21 - 72 U/L Final Alkaline Phosphatase 03/01/2019 93 40 - 150 U/L Final eGFR 03/01/2019 >60 See Interpretation Below ml/min/1.73ml Sq Final Estimated GFR Interpretation: Above 60ml/min/1.73m2 = Normal Renal Function 30-59 ml/min/1.73m2 = Stage 3 Chronic Kidney Disease 15-29 ml/min/1.73m2 = Stage 4 Chronic Kidney Disease Less than 15 ml/min/1.73m2 = Stage 5 Chronic Kidney Disease The GFR value is calculated using the Modification of Diet in Renal Disease ( MDRD) Study Equation which can be found at: https://www.kidney.org/content/hjby-hkpgv-fsqkdkjn BUN/Creatinine Ratio 03/01/2019 23* 6 - 22 RATIO Final Anion Gap 03/01/2019 9 3 - 11 mmol/L Final A/G Ratio 03/01/2019 1.3 0.8 - 2.0 ratio Final WBC Count 03/01/2019 5.97 4.23 - 9.07 K/uL Final RBC Count 03/01/2019 4.91 4.30 - 5.89 M/UL Final Hemoglobin 03/01/2019 13.6* 13.7 - 17.5 g/dL Final Hematocrit 03/01/2019 45.2 40.1 - 51.0 % Final MCV 03/01/2019 92.1 79.0 - 92.2 FL Final MCH 03/01/2019 27.7 25.7 - 32.2 PG Final MCHC 03/01/2019 30.1* 32.3 - 36.5 g/dL Final Platelet Count 03/01/2019 237 163 - 337 K/uL Final MPV 03/01/2019 11.3 9.4 - 12.4 FL Final RDW 03/01/2019 15.4* 11.6 - 14.4 % Final Neutrophil % 03/01/2019 72.4* 34.0 - 67.9 % Final Lymphocyte % 03/01/2019 14.4* 21.8 - 53.1 % Final Monocyte % 03/01/2019 8.4 5.3 - 12.2 % Final Eosinophil % 03/01/2019 3.7 0.8 - 7.0 % Final Basophil % 03/01/2019 0.8 0.2 - 1.2 % Final nRBC % 03/01/2019 0.0 0.0 - 0.2 % Final Neutrophil # 03/01/2019 4.32 1.78 - 5.38 K/UL Final Lymphocyte # 03/01/2019 0.86* 1.32 - 3.57 K/UL Final Monocyte # 03/01/2019 0.50 0.30 - 0.82 K/UL Final Eosinophil # 03/01/2019 0.22 0.04 - 0.54 K/UL Final Basophil # 03/01/2019 0.05 0.01 - 0.08 K/UL Final Immature Gran % 03/01/2019 0.3 0.0 - 0.4 % Final Immature Gran # 03/01/2019 0.02 0.00 - 0.03 K/uL Final NRBC # 03/01/2019 0.00 0.00 - 0.12 K/uL Final Past Medical History: Diagnosis Date AVB (atrioventricular block) BCC (basal cell carcinoma), face nose BPH Cerumen impaction Colonic polyps COPD (chronic obstructive pulmonary disease) (HCC) Diverticulosis HTN (hypertension) Hypercholesteremia Internal hemorrhoid Sleep apnea Tobacco use disorder Family History Problem Relation Age of Onset Alzheimer's Disease Mother Respiratory Father pneumonia Hypertension Brother Hypertension Sister Current Outpatient Medications Medication Sig apixaban (ELIQUIS) 5 MG Oral Tab Take 1 Tab by mouth TWICE DAILY. atorvastatin (LIPITOR) 20 MG Oral Tab TAKE 1 TABLET BY MOUTH ONCE DAILY Candesartan Cilexetil 32 MG Oral Tab Take 1 Tab by mouth DAILY. colchicine (COLSALIDE) 0.6 MG Oral Tab Take 1 Tab by mouth DAILY NEEDED (gout). Take 1 pill twice daily today and tomorrow, then 1 pill daily hydrocortisone (ANUSOL-HC) 2.5 % Rectal Cream Place 1 Appl per rectum NEEDED (rectal irritation). terazosin (HYTRIN) 1 MG Oral Cap Take 1 Cap by mouth DAILY. No current facility-administered medications for this visit. No Known Allergies Social History Socioeconomic History Marital status: Spouse name: Not on file Number of children: Not on file Years of education: Not on file Highest education level: Not on file Occupational History Not on file Social Needs Financial resource strain: Not on file Food insecurity Worry: Not on file Inability: Not on file Transportation needs Medical: Not on file Non-medical: Not on file Tobacco Use Smoking status: Former Smoker Last attempt to quit: 12/31/2010 Years since quittin.1 Smokeless tobacco: Former User Types: Chew Tobacco comment: 1 ppd Substance and Sexual Activity Alcohol use: Yes Alcohol/week: 0.0 standard drinks Comment: 6 beers 2-3 x a week Drug use: No Sexual activity: Not on file Lifestyle Physical activity Days per week: Not on file Minutes per session: Not on file Stress: Not on file Relationships Social connections Talks on phone: Not on file Gets together: Not on file Attends spiritism service: Not on file Active member of club or organization: Not on file Attends meetings of clubs or organizations: Not on file Relationship status: Not on file Intimate partner violence Fear of current or ex partner: Not on file Emotionally abused: Not on file Physically abused: Not on file Forced sexual activity: Not on file Other Topics Concern Back Care Not Asked Bike Helmet Not Asked Blood Transfusions Not Asked Caffeine Concern Not Asked Exercise Not Asked Hobby Hazards Not Asked International Travel Not Asked Service Not Asked Occupational Exposure Not Asked Seat Belt Not Asked Self-Exams Not Asked Sleep Concern Not Asked Special Diet Not Asked Stress Concern Not Asked Weight Concern Not Asked Social History Narrative Not on file REVIEW OF SYSTEMS: Review of Systems Constitutional: Negative for malaise/fatigue and weight loss. HENT: Negative for congestion. Eyes: Negative for blurred vision. Respiratory: Negative for shortness of breath. Cardiovascular: Negative for chest pain. Gastrointestinal: Negative for abdominal pain. Genitourinary: Negative for frequency. Musculoskeletal: Negative for back pain. Skin: Negative for rash. Neurological: Negative for dizziness. Endo/Heme/Allergies: Negative for polydipsia. Psychiatric/Behavioral: Negative for depression. Objective PHYSICAL EXAM: VITALS: BP 132/68 (BP Location: Left arm, Patient Position: Sitting) | Pulse 60 | Wt 277 lb (125.6 kg) | BMI 37.57 kg/m Body mass index is 37.57 kg/m . Physical Exam Alert, oriented, in no acute distress. Vitals as above. HEENT: Normocephalic, atraumatic. HARI, EOMI. Mouth and ears unremarkable. Neck: No palpable lymphadenopathy in the submandibular, submental, anterior cervical, posterior cervical, or occipital chains, nor in the supraclavicular spaces. No JVD, thyromegaly. LUNGS: clear. HEART: Regular rate and rhythm. ABDOMEN: positive bowel sounds, soft, nontender, no hepatosplenomegaly, masses or bruits. EXTREMITIES: no cyanosis, clubbing, or edema. ASSESSMENT / IMPRESSION: ICD-9-CM ICD-10-CM 1. Hypercholesteremiatreated with Lipitor 272.0 E78.00 LIPID PROFILE THYROID STIMULATING HORMONE 2. Essential hypertensioncontrolled 401.9 I10 COMPREHENSIVE METABOLIC PANEL 3. Obstructive sleep apnea syndrometreated 327.23 G47.33 4. Typical atrial flutter (HCC)stable now 427.32 I48.3 CBC WITH DIFFERENTIAL 5. Chronic obstructive pulmonary disease, unspecified COPD type (HCC) stable 496 J44.9 Patient Instructions Continue same medicines follow up 4 months with labs first, as ordered Author: Mayank Horton MD 03/10/2019 11:57 documented in this encounter Plan of Treatment Date Type Specialty Care Team Description 06/28/2019 Lab Internal Medicine 07/07/2019 Office Visit Internal Medicine Mayank Horton MD [address] [place] [address] 08/31/2019 Orders Only Cardiology 09/08/2019 Office Visit Cardiology Bib Smith MD [address] [place] [address] Name Type Priority Associated Diagnoses Order Schedule COMPREHENSIVE METABOLIC Lab Routine Essential hypertension Expected: PANEL 03/10/2019 (Approximate), Expires: 09/06/2019 LIPID PROFILE Lab Routine Hypercholesteremia Expected: 03/10/2019 (Approximate), Expires: 09/06/2019 THYROID STIMULATING Lab Routine Hypercholesteremia Expected: HORMONE 03/10/2019 (Approximate), Expires: 09/06/2019 CBC WITH DIFFERENTIAL Lab Routine Typical atrial flutter (HCC) Ordered: 03/10/2019 Health Maintenance Due Date Last Done Comments DTaP/Tdap/Td Vaccines (1 - 01/06/1951 Tdap) ZOSTER IMMUNIZATION SERIES 07/02/2013 05/07/2013 (2 of 3) MEDICARE ANNUAL WELLNESS 08/22/2016 08/23/2015, 12/12/2014 VISIT (Previously completed) DEPRESSION SCREENING 07/07/2019 07/06/2018 FALL RISK ASSESSMENT 07/07/2019 07/06/2018, 07/06/2018 PNEUMOCOCCAL 65+YRS Completed 01/22/2016, 05/09/2014 INFLUENZA VACCINE Completed 11/10/2018, 10/20/2017, 11/22/2016, Additional history exists HEPATITIS A IMMUNIZATION Aged Out No longer eligible SERIES based on patient's age to complete this topic HPV IMMUNIZATION SERIES Aged Out No longer eligible based on patient's age to complete this topic MENINGOCOCCAL VACCINE IMM Aged Out No longer eligible based on patient's age to complete this topic documented as of this encounter Goals Goal Patient Goal Associated Recent Patient-Stated? Author Type Problems Progress Blood Pressure Blood Pressure 132/68 No Otto, < 140/90 (03/10/2019 MD Mayank 11:30 AM EST) Note: This is an individualized treatment (blood pressure) goal for Dat Goodman: Displayed above (on the left) is your goal for blood pressure control. Your most recent blood pressure is also shown above, on the right. You should try to achieve blood pressures that are lower than your goal listed above (on the left). Weight loss vs. 18 mo Lifestyle 14 (03/10/2019 11:30 AM EST) No Mayank Horton MD max (lbs) >= 10 Note: This is an individualized lifestyle goal for Dat Llamas Maxine: Your body mass index (BMI) is more than 30. You should lose weight. A reasonable starting goal is to lose 10 pounds. Displayed above is how many pounds you have lost thus far towards your 10 pound weight loss goal. Keep immunizations current Lifestyle Mayank Larry MD Note: This is an individualized lifestyle goal for Dat Goodman: Please be sure to keep up-to-date on recommended immunizations. For example, this would include a yearly influenza vaccine. Immunization status can be seen by looking at the Health Maintenance sections of your [facility], Plan of Care, and any After Visit Summaries. Take all prescribed medications as directed Self-management Mayank Larry MD Note: This is an individualized self-management goal for Dat Muriel Goodman: Please take all prescribed medications as directed. 1. Do not skip doses. If you cannot afford your medications, talk with your doctor. 2. Use a pill reminder system such as a pill box if needed. Your pharmacist can help you with this. 3. Contact your Pharmacy 5 days before your medication runs out. If you cannot take your medications for any reasons, talk with your doctor. 4. Please bring all of your medication bottles and inhalers (or a list of all your medications/inhalers) with you to every visit. Potential barriers to meeting all of your care plan goals will continue to be addressed on an ongoing basis. documented as of this encounter Results Not on filedocumented in this encounter Visit Diagnoses Diagnosis Hypercholesteremia Pure hypercholesterolemia Essential hypertension Unspecified essential hypertension Obstructive sleep apnea syndrome Obstructive sleep apnea (adult) (pediatric) Typical atrial flutter (HCC) Atrial flutter Chronic obstructive pulmonary disease, unspecified COPD type (HCC) documented in this encounter Insurance Payer Benefit Plan / Subscriber ID Effective Dates Phone Address Type Group MEDICARE MEDICARE PART A & xxxxxxxxxxx 2005-Present Medicare B [place] xxxxxxxxxxxx 2013-Present Christiane Guarantor Name Account Type Relation to Date of Phone Billing Patient Address Dat Goodman Personal/Family 1940 [address] (Home) [place], [place] [phone] [id number] (Work) documented as of this encounter"
--- OUTSIDE RECORDS SUMMARY | 2019-03-27 12:36 | XMS REPORT | Summary of Care ---
:1940 Author Organization [facility] Address [address] [address] Care Team Providers Name Role Phone Mayank Menjivar Primary Care Provider Sena Marmolejo RN Signallamp Delinquency Prevention Social Worker Unavailable Reason for Referral Diagnostic Testing (Routine) Status Reason Specialty Diagnoses / Referred By Referred To Procedures Contact Contact Pending Review Diagnoses Paroxysmal atrial fibrillation (HCC) Luis, Procedures ECHOCARDIOGRAM TTE MD Bib [facility] [place] [address] Reason for Visit Reason Comments Follow Up Pt. in for a 6 month follow up on Typical Atrial Flutter. Here to discuss Holter results. Encounter Details Date Type Department Care Team Description 03/10/2019 Office Visit Yahir Vazquez Luis Typical atrial flutter ( HCC) (Primary Dx); Cardiology MD Bib Paroxysmal atrial fibrillation (HCC); [address] [facility] [address] [facility] Symptomatic bradycardia; [place] [address] Essential hypertension; [phone] Dyslipidemia; VIGNESH (obstructive sleep apnea); PVC's (premature ventricular contractions) Allergies No Known Allergiesdocumented as of this encounter (statuses as of 03/10/2019) Medications Medication Sig Dispensed Refills Start Date [...] as of this encounter (statuses as of 03/10/2019) Active Problems Problem Noted Date Typical atrial [...] weight loss and is managed by Muriel MENJIVAR MD .referral to appeals reviewer veteran is declined by the patient. Colon polyp 05/26/2007 Overview: Replaced inactive diagnosis Hypercholesteremia 05/26/2007 AVB (atrioventricular block) 05/26/2007 Internal hemorrhoid 05/26/2007 Chronic obstructive pulmonary disease Sleep apnea documented as of this encounter (statuses as of 03/10/2019) Resolved Problems Problem Noted Date Resolved Date Diverticulosis 05/26/2007 06/06/2016 HTN (hypertension) 05/26/2007 06/06/2016 Tobacco use disorder 05/26/2007 04/15/2012 BPH (benign prostatic hypertrophy) 05/26/2007 02/01/2009 Overview: Replaced inactive diagnosis documented as of this encounter (statuses as of 03/10/2019) Immunizations Name Administration Dates Next Due H1N1 [...] Sign Reading Time Taken Comments Blood Pressure 136/64 03/10/2019 10:17 AM EST Pulse 58 03/10/2019 10:17 AM EST irregular Temperature - - Respiratory Rate - - Oxygen Saturation - - Inhaled Oxygen Concentration - - Weight 125.6 kg (277 lb) 03/10/2019 10:17 AM EST Height 182.9 cm (6') 03/10/2019 10:17 AM EST Body Mass Index 37.57 03/10/2019 10:17 AM EST documented in this encounter Patient Instructions Patient InstructionsMcBib Graham MD - 03/10/2019 10:20 AM EST No medication changes today. Continue to work on weight loss and a healthy diet. Work on stopping the tobacco pouches. Schedule an echocardiogram in about 6 months and follow up with me shortly after that. documented in this encounter Progress Notes Bib Smith MD - 03/10/2019 10:20 AM EST [facility] Note Patient: Dat oGodman Date of : 1940 Date of Service: 03/10/2019 REFERRING PRACTITIONER: Mayank Menjivar PRIMARY CARE PROVIDER: Mayank Menjivar Chief Complaint: Chief Complaint Patient presents with Follow Up Pt. in for a 6 month follow up on Typical Atrial Flutter. Here to discuss Holter results. History of Present Illness: [facility] He [facility] a 79-y.o. male with obesity, HTN , COPD, VIGNESH, hyperlipidemia, and Afib/atrial flutter s/p DCCV 02/2018. He also had episodes of symptomatic bradycardia that improved with cessation of metoprolol. Mr. Goodman returns to cardiology clinic today for routine f/u. Since his last visit with me he reports feeling fairly well. He feels that the CPAP is helping him sleep better. He stays active and is able to do trap shooting and use the snowblower without any limiting dyspnea or CP/pressure. Denies any palpitations, lightheadedness, or syncope. No orthopnea, paroxysmal dyspnea, or lower extremity edema. No bleeding issues on the Eliquis. Patient Active Problem List Diagnosis Colon polyp Hypercholesteremia AVB (atrioventricular block) Internal hemorrhoid BMI 36.0-36.9,adult Essential hypertension Diverticulosis of large intestine without hemorrhage Chronic obstructive pulmonary disease (HCC) Typical atrial flutter (HCC) Sleep apnea Past Medical History: Diagnosis Date AVB (atrioventricular block) BCC (basal cell carcinoma), face nose BPH Cerumen impaction Colonic polyps COPD (chronic obstructive pulmonary disease) (HCC) Diverticulosis HTN (hypertension) Hypercholesteremia Internal hemorrhoid Sleep apnea Tobacco use disorder Past Surgical History: Procedure Laterality Date APPENDECTOMY 1987 CARDIOVERSION N/A 03/09/2018 Procedure: CARDIOVERSION; Surgeon: Bib Smith MD; Location: [facility] CHOLECYSTECTOMY 1987 OPEN REDUC-ANKLE DISLOC 1981 left ankle pinned OPEN REDUC-HIP DISLOCAT age 9 left hip pinned No Known Allergies Current Outpatient Medications Medication Sig apixaban (ELIQUIS) [...] No current facility-administered medications for this visit. Family History Problem Relation Age of Onset Alzheimer's Disease Mother Respiratory Father pneumonia Hypertension Brother Hypertension Sister Social History Socioeconomic History Marital status: Spouse [...] file Gets together: Not on file Attends jew service: Not on file Active member of [...] Asked Social History Narrative Not on file Review of Systems - Negative except as noted in HPI. Physical Exam: Vitals: 03/10/19 1017 BP: 136/64 BP Location: Left arm Patient Position: Sitting Pulse: 58 Weight: 277 lb (125.6 kg) Height: 6' (1.829 m) Body mass index is 37.57 kg/m. General: Obese, alert 79-y.o. male in NAD HEENT: anicteric, MMM, no E/E OP, conj pink Neck: JVP difficult to appreciate d/t body habitus but appears to be approx 5-6 cm above RA, no carotid bruits or LAD CV: Irreg irreg, normal s1/s2, no appreciable murmurs, rubs, or gallops Pulm: CTA bilaterally without wheezes, rhonchi, or rales. No increased work of breathing. Abd: soft, obese, NT, ND, +BS. No appreciable pulsatile masses or bruits. Ext: Trace bilateral lower extremity edema, no cyanosis, no cords, redness, or warmth, 2+ distal pulses Neuro: no gross focal deficits Skin: no visible lesions Labs: Lab Results Component Value Date NA 143 03/01/2019 K 4.3 03/01/2019 CL 107 03/01/2019 CO2 27 03/01/2019 GLUCOSE 107 (H) 03/01/2019 BUN 14 03/01/2019 CREATININE 0.6 (L) 03/01/2019 CALCIUM 9.4 03/01/2019 TP 7.2 03/01/2019 ALBUMIN 4.1 03/01/2019 AST 36 03/01/2019 ALT 30 03/01/2019 ALK 93 03/01/2019 TBILI 0.8 03/01/2019 EGFR >60 03/01/2019 No results found for: BNP Lab Results Component Value Date CHOL 112 03/01/2019 TRIG 52 03/01/2019 HDL 34 (L) 03/01/2019 LDL 68 03/01/2019 LDLHDLRATIO 2.0 03/01/2019 CHOLHDLRATIO 3.3 03/01/2019 Cardiac Studies: Holter Monitor 02/22/2018 (Preliminarily viewed in [facility]; processed tracings not yet available): Pt in Afib/flutter the entire time. Frequent PVCs and occasional nonsustained VT up to 4 beats. Max HR 120 bpm in Afib/flutter and max pause just over 2 seconds. 30 Day OT 06/23/18: FINDINGS: 1. The patient was monitored from 05/30/2018 through 06/09/2018. 2. Multiple automatic triggered events were noted by the monitor. These all corresponded to episodes of atrial fibrillation or flutter with occasional isolated premature ventricular contractions. In the earlier dates of the recording heart rates were sometimes as low as 35 to 40 beats per minute. However, after the patient's metoprolol had been stopped later in the recording, heart rates ranged from 50 to 100 beats per minute. 3. No symptomatic events were identified by the patient. 4. No episodes of rapid ventricular response were identified. CONCLUSION: Event monitoring reveals paroxysmal atrial fibrillation and atrial flutter with an initially slow ventricular response that improved with the discontinuation of beta-autumn. No prolonged pauses or high-grade AV block were seen. Regadenoson SPECT 03/09/18: IMPRESSION Impression: 1. There is no evidence of myocardial ischemia. 2. There is normal wall motion. 3.The left ventricular ejection fraction is 66 %. TTE 02/10/2018: FINAL IMPRESSION: Concentric LV remodeling with moderate left atrial enlargement. Normal LV systolic function with no regional wall motion abnormalities and estimated LVEF 60-65%. Grade II diastolic dysfunction with elevated left atrial pressure. Mild right heart enlargement with preserved RV contractility. Mild mitral regurgitation. No other hemodynamically significant valvular abnormalities. No pericardial effusion. Pulmonary arterial systolic pressure cannot be accurately estimated from this study. Compared to the report of prior stress echocardiogram of 05/12/2005, there is development of diastolic dysfunction. Exercise Stress Echo 2005: FINAL IMPRESSION: Exercise tolerance of the patient is adequate. Hypertensive response to exercise is noted. This study shows no echocardiographic evidence of ischemia at a moderate workload and an adequate heart rate. Probability of significant ischaemic heart disease is low by symptoms,EKG and Echocardiogram. Assessment & Plan: Dat Goodman is a 79-y.o. male with obesity, HTN, COPD, VIGNESH, hyperlipidemia, and Afib/atrial flutter s/p DCC 02/2018. He also had episodes of symptomatic bradycardia that improved with cessation of metoprolol. ICD-9-CM ICD-10-CM 1. Typical atrial flutter (HCC) 427.32 I48.3 2. Paroxysmal atrial fibrillation (HCC) 427.31 I48.0 ECHOCARDIOGRAM TTE 3. Symptomatic bradycardia 427.89 R00.1 4. Essential hypertension 401.9 I10 5. Dyslipidemia 272.4 E78.5 6. VIGNESH (obstructive sleep apnea) 327.23 G47.33 7. PVC's (premature ventricular contractions) 427.69 I49.3 1. Atrial Fibrillation/Flutter: The etiology of atrial arrhythmias in this patient is most likely related to obesity and VIGNESH. The heart-rate is currently well controlled on the current medical regimen (in AF today). This patient's [id number] score is 3. I recommend the following treatment strategy and medical regimen for this patient: Stroke prevention: Based on the patient's [id number] risk profile, I recommend continuing Eliquis. Rate control: Off negative chronotropes d/t symptomatic bradycardia while on them. This implies a degree of AV node dysfunction and we'll continue to monitor for progression of this going forward. Rhythm control: I had previously cardioverted him and it seemed like he felt better in NSR. However, he's now been in Afib for a while (was in it during his Holter and again today) and he's asymptomatic. We'll check another echo in ~ 6 months and if his LVEF remains normal then we'll just plan to pursue a rate control approach. Further workup/management issues: This patient has been diagnosed with VIGNESH and is doing well with CPAP. I encouraged him to continue that and continue working on weight loss. 2. Symptomatic Bradycardia: Symptoms have improved significantly off metoprolol and his MCOT last May looked fine. Recent 24 hour Holter did not show any pauses more than ~2 seconds while in AF. Willcont to monitor clinically and with periodic Holters. Thank you for allowing me to participate in the care of Dat Goodman. We will plan on f/u in our office in ~6 months (shortly after his echo) or sooner prn. If you have any questions or concerns please feel free to call our office at [phone]. Bib Smith MD, 03/10/2019, 10:57 This note was created using my previous note as a template; changes were made where appropriate, andall information in the current note is up to date to the best of my knowledge.Electronically signed by Bib Smith MD at 2019 10:57 AM ESTdocumented in this encounter Plan of Treatment Date Type Specialty Care Team Description 03/10/2019 Office Visit Internal Medicine Mayank Menjivar MD Arrived [address] [place] [address] 08/31/2019 Orders Only Cardiology 09/08/2019 Office Visit Cardiology Bib Smith MD [facility] [place] [address] Name Type Priority Associated Diagnoses Order Schedule ECHOCARDIOGRAM TTE CV Lab Routine Paroxysmal atrial Expected: 09/08/2019 fibrillation (HCC) (Approximate), Expires: 04/13/2020 Health Maintenance Due Date Last Done Comments DTaP/Tdap/Td Vaccines (1 - 01/06/1952 Tdap) HIV SCREENING 01/06/1956 ZOSTER IMMUNIZATION SERIES 07/02/2013 05/07/2013 (2 of [...] Type Problems Progress Blood Pressure Blood Pressure 136/64 No Otto, < 140/90 (03/10/2019 MD Mayank 10:17 AM EST) Note: This is an individualized [...] loss vs. 18 mo Lifestyle 14 (03/10/2019 10:17 AM EST) No Mayank Menjivar MD max (lbs) >= 10 Note: This is an individualized lifestyle goal for Dat Goodman: Your body mass index (BMI) is more than 30. You should lose weight. A reasonable starting goal is to lose 10 pounds. Displayed above is how many pounds you have lost thus far towards your 10 pound weight loss goal. Keep immunizations current Lifestyle No Mayank Menjivar MD Note: This is an individualized lifestyle [...] is an individualized self-management goal for Dat Goodman: Please take all prescribed medications as [...] filedocumented in this encounter Visit Diagnoses Diagnosis Typical atrial flutter (HCC) Atrial flutter Paroxysmal atrial fibrillation (HCC) Atrial fibrillation Symptomatic bradycardia Other specified cardiac dysrhythmias Essential hypertension Unspecified essential hypertension Dyslipidemia Other and unspecified hyperlipidemia VIGNESH (obstructive sleep apnea) Obstructive sleep apnea (adult) (pediatric) PVC's (premature ventricular contractions) Other premature beats documented in this encounter Insurance Payer Benefit Plan / Subscriber ID Effective Dates Phone Address Type Group MEDICARE MEDICARE PART A & xxxxxxxxxxx 2005-Present Medicare B [employer] EX[employer]BS xxxxxxxxxxxx 2013-Present [employer] Guarantor Name Account Type Relation to Date of Phone Billing Patient Address Catherine Goodmanmeme Llamas Personal/Family 1940 [address] [facility] (Home) [place], [place] [phone] [id number] (Work) documented as of this encounter
--- OUTSIDE RECORDS SUMMARY | 2019-03-27 12:36 | XMS REPORT | Summary of Care ---
:1940 Author Organization [facility] Address [address] [address] Care Team Providers Name Role Phone Mayank Menjivar Primary Care Provider Sena Marmolejo RN Signallamp Central Scheduler Unavailable Reason for Visit Reason Comments Congestion chest congestion mostly at night, nasal congestion w/ post nasal drip and low grade fever for 1 week Encounter Details Date Type Department Care Team Description 03/21/2019 Office Visit [place] Jacqueline Massey, Acute bronchitis, Practice PA-C unspecified organism [address] (Primary Dx) [place] [address] [place] [address] [phone] Allergies No Known Allergiesdocumented as of this encounter (statuses as of 03/21/2019) Medications Medication Sig Dispensed Refills Start Date [...] 20 MG Oral Tab MOUTH ONCE DAILY azithromycin (ZITHROMAX) Take 2 pills on 6 Tab 0 03/21/2019 Active 250 MG Oral Tab the first day and 1 pill each day for 4 days documented as of this encounter (statuses as of 03/21/2019) Active Problems Problem Noted Date Typical atrial [...] managed by Muriel MENJIVAR MD .referral to oil burner journeyman is declined by the patient. Colon polyp 05/26/2007 Overview: Replaced inactive diagnosis Hypercholesteremia 05/26/2007 AVB (atrioventricular block) 05/26/2007 Internal hemorrhoid 05/26/2007 Chronic obstructive pulmonary disease Sleep apnea documented as of this encounter (statuses as of 03/21/2019) Resolved Problems Problem Noted Date Resolved Date Diverticulosis 05/26/2007 06/06/2016 HTN (hypertension) 05/26/2007 06/06/2016 Tobacco use disorder 05/26/2007 04/15/2012 BPH (benign prostatic hypertrophy) 05/26/2007 02/01/2009 Overview: Replaced inactive diagnosis documented as of this encounter (statuses as of 03/21/2019) Immunizations Name Administration Dates Next Due H1N1 [...] Sign Reading Time Taken Comments Blood Pressure 126/68 03/21/2019 11:03 AM EST Pulse 60 03/21/2019 11:03 AM EST Temperature 36.6 03/21/2019 11:03 AM EST C (97.9 F) Respiratory Rate - - Oxygen Saturation 95% 03/21/2019 11:03 AM EST Inhaled Oxygen Concentration - - Weight 126.1 kg (278 lb) 03/21/2019 11:03 AM EST Height 182.9 cm (6') 03/21/2019 11:03 AM EST Body Mass Index 37.7 03/21/2019 11:03 AM EST documented in this encounter Patient Instructions Patient InstructionsDoJacqueline gutierrez PA-C - 03/21/2019 11:00 AM ESTEscribed Zpak , take with food Avoid creamy foods and drink Rest, gargle with warm salt water Push water, soup, juice, tea with honey/lemon OTC Tylenol/Ibuprofen for fever/pain Cool mist vaporizer at bedtime Call if not improving or with any questions or concerns documented in this encounter Progress Notes Jacqueline Mcmahon PA-C - 03/21/2019 11:00 AM EST PATIENT: Dat Goodman : 1940 DATE OF SERVICE: 03/21/2019 REFERRING PRACTITIONER: Self-Referred PRIMARY CARE PROVIDER: Mayank Menjivar CHIEF COMPLAINT: Chief Complaint Patient presents with Congestion chest congestion mostly at night, nasal congestion w/ post nasal drip and low grade fever for 1 week Subjective HISTORY OF PRESENT ILLNESS: Dat Goodman is a 79-y.o. male who presents with chest congestion, nasal congestion, post nasal drip, low grade fever x 1 week Night coughing is worse Home heat is hot, forced air, not using humidifier Taking OTC coughing drops Denies chills, nausea, vomiting, diarrhea, chest pains, SOB Past Medical History: Diagnosis Date AVB (atrioventricular block) BCC (basal cell carcinoma), face nose BPH Cerumen impaction Colonic polyps COPD (chronic obstructive pulmonary disease) (HCC) Diverticulosis HTN (hypertension) Hypercholesteremia Internal hemorrhoid Sleep apnea Tobacco use disorder Past Surgical History: Procedure Laterality Date APPENDECTOMY 1987 CARDIOVERSION N/A 03/09/2018 Procedure: CARDIOVERSION; Surgeon: Bib Smith MD; Location: [facility] CHOLECYSTECTOMY 1987 OPEN REDUC-ANKLE DISLOC 1982 left ankle pinned OPEN REDUC-HIP DISLOCAT age 9 left hip pinned Family History Problem Relation Age of Onset [...] Last attempt to quit: 12/31/2010 Years since quittin.2 Smokeless tobacco: Former User Types: Chew Tobacco [...] file Gets together: Not on file Attends anglican service: Not on file Active member of [...] Narrative Not on file REVIEW OF SYSTEMS: Skin: negative skin lesions Eyes: negative visual blurring Ears/Nose/Throat: positive rhinorrhea, post nasal drip Respiratory: positive cough, COPD Cardiovascular: negative chest pain Gastrointestinal: negative abdominal pain, constipation, diarrhea, nausea or vomiting Genitourinary: negative burning on urination, dysuria Musculoskeletal: negative arthritis/joint pain Neurologic: negative numbness or tingling of feet or hands Psychiatric: negative anxiety Hematologic/Lymphatic/Immunologic: negative allergies Endocrine: negative diabetes or hot flashes/sweats Objective PHYSICAL EXAMINATION: VITALS: BP 126/68 (BP Location: Right arm, Patient Position: Sitting) | Pulse 60 | Temp 97.9 F (36.6 C) | Ht 6' (1.829 m) | Wt 278 lb (126.1 kg) | SpO2 95% | BMI 37.70 kg/m Body mass index is 37.7 kg/m. General appearance: alert, mild distress, cooperative, oriented times 3, obese Skin: Skin color, texture, turgor normal. No rashes or lesions. Head: Normocephalic. No masses, lesions, tenderness or abnormalities Eyes: conjunctivae/corneas clear. PERRL, EOM's intact. Ears: TMs and canals normal bilaterally Nose/Sinuses: positive findings: mucosa erythematousn, clear rhinorrhea Oropharynx: positive findings: mild oropharyngeal erythema, post nasal drip present Neck: Neck supple, FROM. No cervical or supraclavicular adenopathy. Lungs: Rhonchi throughout Heart: RRR. No murmur, clicks or gallops. No peripheral edema . IMPRESSION: ICD-9-CM ICD-10-CM 1. Acute bronchitis, unspecified organism 466.0 J20.9 Plan PLAN: Escribed Zpak, take with food Avoid creamy foods and drink Rest, gargle with warm salt water Push water, soup, juice, tea with honey/lemon OTC Tylenol/Ibuprofen for fever/pain Cool mist vaporizer at bedtime Call if not improving or with any questions or concerns Author: Jacqueline Mcmahon PA-C 03/21/2019 11:00 documented in this encounter Plan of Treatment Date Type Specialty Care Team Description 06/28/2019 Lab Internal Medicine 07/07/2019 Office Visit Internal Medicine Mayank Menjivar MD [address] [place] [address] 08/31/2019 Orders Only Cardiology 09/08/2019 Office Visit Cardiology Bib Smith MD [address] [place] [address] Health Maintenance Due Date Last Done Comments [...] Type Problems Progress Blood Pressure Blood Pressure 126/68 No Otto, < 140/90 (03/21/2019 MD Mayank 11:03 AM EST) Note: This is an individualized treatment (blood pressure) goal for Dat Goodman: Displayed above (on the left) is your goal for blood pressure control. Your most recent blood pressure is also shown above, on the right. You should try to achieve blood pressures that are lower than your goal listed above (on the left). Weight loss vs. 18 mo Lifestyle 13 (03/21/2019 11:03 AM EST) No Mayank Menjivar MD max [...] individualized lifestyle goal for Dat Llamas Maxine: Please be sure to keep up-to-date on recommended immunizations. For example, this would include a yearly influenza vaccine. Immunization status can be seen by looking at the Health Maintenance sections of your e[facility], Plan of Care, and any After Visit Summaries. Take all prescribed medications as directed Self-management Mayank Larry MD Note: This is an individualized self-management goal for Dat Llamas Maxine: Please take all prescribed medications as directed. [...] filedocumented in this encounter Visit Diagnoses Diagnosis Acute bronchitis, unspecified organism documented in this encounter Insurance Payer Benefit Plan / Subscriber ID Effective Dates Phone Address Type Group MEDICARE MEDICARE PART A & xxxxxxxxxxx 2005-Present Medicare B [place] [place] xxxxxxxxxxxx 2013-Present Christiane Guarantor Name Account Type Relation to Date of Phone Billing Patient Address Dat Goodman Personal/Family 1940 [address] [facility] (Home) [place], [place] [phone] (Work) documented as of this encounter"
[2019-03-27 12:38] VITALS: BP 156/71
--- NOTE | 2019-03-27 12:38 | UC ---
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 He denies chest pain nor sob. Denies headache. - History Of Current Complaint Stated Complaint: FAINTED,LOST CONSCIOUSNESS Hx Obtained From: Patient, Family/Land Clearer Onset/Duration: Sudden Onset Context: Loss Of Consciousness - Risk Factors Cardiac Risk Factors: CAD - Allergies/Home Medications Allergies/Adverse Reactions: Allergies Allergy/AdvReac Type Severity Reaction Status Date / Time No Known Allergies Allergy Verified 03/27/19 12:21 PMH/Surg Hx/FS Hx/Imm Hx Previously Healthy: Yes Cardiovascular History: Cardiac Disease, Atrial Fibrillation - Surgical History Surgical History: Yes Surgery Procedure, Year, and Place: 1988-GALLBLADDER REMOVED-[place]. 1969- REPAIR FX ANKLE WITH PLATING- [place]. 1951-REPAIR OF FRACTURED LEG- [place] - Family History Known Family History: Negative: Cardiac Disease, Hypertension - Social History Alcohol Use: Weekly Alcohol Amount: 3 cans/ 3 times per week Substance Use Type: None Smoking Status (MU): Former Smoker Amount Used/How Often: 1 PPD X 50 YEARS Have You Smoked in the Last Year: No When Did the Patient Quit Smoking/Using Tobacco: 2010 - Immunization History Most Recent Influenza Vaccination: november 2017 Most Recent Pneumonia Vaccination: received Review of Systems All Other Systems Reviewed And Are Negative: Yes Constitutional: Positive: Negative Skin: Positive: Negative Eyes: Positive: Negative ENT: Positive: Negative Respiratory: Positive: Negative Cardiovascular: Negative: Palpitations, Chest Pain Gastrointestinal: Negative: Abdominal Pain, Vomiting, Diarrhea, Nausea Genitourinary: Positive: Negative Motor: Positive: Negative Neurovascular: Positive: Negative Musculoskeletal: Positive: Negative Neurological: Positive: Other - acute syncopal episode. Psychological: Positive: Negative Is Patient Immunocompromised?: No Physical Exam Triage Information Reviewed: Yes Appearance: No Pain Distress, Obese Vital Signs Reviewed: Yes Eye Exam: Normal ENT Exam: Normal Neck: Positive: Supple, Nontender Respiratory: Positive: Lungs clear, Normal breath sounds Cardiovascular: Positive: No Murmur, Other: - irregular rate and rhythm Abdomen Description: Positive: Nontender, Soft, Other: - right sided cholecystectomy scar. Neurological Exam: Normal Psychological Exam: Normal Skin Exam: Normal Syncope Course/Dx - Course Course Of Treatment: EKG shows a-flutter with changes consistent with acute MS after syncopal episode. 911 was called for transport and transfer. Vital signs were stable and in no acute distress. He was given ASA 325mg, oxygen 2 liters via nasal canula, and an IV was initiated. Blood glucose was 123. I spoke with Dr. Hopson, wood setter, who was made aware that patient is on his way to the ED for further evaluation and treatment. - Differential Dx/Diagnosis Provider Diagnosis: Acute myocardial infarction, Syncope and collapse Discharge ED - Sign-Out/Discharge Documenting (check all that apply): Patient Departure All imaging exams completed and their final reports reviewed: No Studies - Discharge Plan Condition: Guarded Disposition: TRANS HIGHER LVL OF CARE FAC Referrals: Mayank Menjivar MD [Primary Care Provider] - - Billing Disposition and Condition Condition: GUARDED Disposition: Trans Higher Lvl of Care Fac
== END 2019-03-27 12:45 | disposition short-term general hospital (02) ==
LOC: UCCORT 12:14
DX: R55 Syncope and collapse (principal); I21.9 Acute myocardial infarction, unspecified; Z87.891 Personal history of nicotine dependence
CPT/HCPCS: 93005; 99213; A9270-GY; G0463

== ENCOUNTER 2019-03-27 13:28 | Inpatient (IN) | payer MEDICARE, BC ==
--- NOTE | 2019-03-27 13:43 | ED ---
Syncope/Near Syncope - HPI Summary HPI Summary: This pt is a 79 Y/O M brought into [facility] by EMS after experiencing a witnessed syncopal event at a local earlier today. He states that he was unconscious a few minutes that was witnessed. He states that prior to the syncopal episode he had palpitations that he described as irregular. He denies any headaches, CP, SOB, dizziness, N/V, diaphoresis, and visual changes before or after the event. He states that he has never had a syncopal event like this before. He is currently on eliquis due to AFIB and HTN. He has no aggravating or alleviating factors. - History Of Current Complaint Chief Complaint: EDSyncope Time Seen by Provider: 03/27/19 13:35 Hx Obtained From: Patient Onset/Duration: Sudden Onset, Lasting Minutes - 3-4, Resolved Timing: Constant Context: Witnessed Activity At Onset: At Rest Associated Head Trauma: No Aggravating Factor(s): Nothing Alleviating Factor(s): Nothing Associated Signs And Symptoms: Negative - headaches, CP, SOB, dizziness, N/V, diaphoresis, and visual changes before or after the event, Palpitations - Allergies/Home Medications Allergies/Adverse Reactions: Allergies Allergy/AdvReac Type Severity Reaction Status Date / Time No Known Allergies Allergy Verified 03/27/19 12:21 Home Medications: Home Medications Candesartan 16 mg (NF) [Atacand 16 mg (NF)] 32 mg PO DAILY 03/27/19 [History Confirmed 03/27/19] PMH/Surg Hx/FS Hx/Imm Hx Previously Healthy: Yes Endocrine/Hematology History: Denies: Hx Diabetes Cardiovascular History: Reports: Hx Atrial Fibrillation, Hx Hypertension, Other Cardiovascular Problems/Disorders - AV BLOCK Denies: Hx Hypercholesterolemia Respiratory History: Denies: Hx Asthma, Hx Chronic Obstructive Pulmonary Disease (COPD) Sensory History: Reports: Hx Contacts or Glasses - GLASSES Denies: Hx Hearing Aid Opthamlomology History: Reports: Hx Contacts or Glasses - GLASSES Psychiatric History: Reports: Hx Anxiety - NO MEDICATION FOR - Cancer History Cancer Type, Location and Year: SKIN Hx Chemotherapy: No Hx Radiation Therapy: No - Surgical History Surgical History: Yes Surgery Procedure, Year, and Place: 1988-GALLBLADDER REMOVED-[place]. 1969- REPAIR FX ANKLE WITH PLATING- [place]. 1951-REPAIR OF FRACTURED LEG- [place] Hx Anesthesia Reactions: No - Immunization History Immunizations Up to Date: Yes Infectious Disease History: Denies: Traveled Outside the [place] in Last 30 Days - Family History Known Family History: Negative: Cardiac Disease, Hypertension - Social History Occupation: Retired Lives: With Family Alcohol Use: Weekly Alcohol Amount: 3 cans/ 3 times per week Hx Substance Use: No Substance Use Type: Reports: None Hx Tobacco Use: Yes Smoking Status (MU): Former Smoker Amount Used/How Often: 1 PPD X 50 YEARS Have You Smoked in the Last Year: No Review of Systems Negative: Skin Diaphoresis Eyes: Negative Positive: Palpitations - irregular . Negative: Chest Pain Negative: Shortness Of Breath Negative: Vomiting, Nausea Neurological: Other - Negative: dizziness Positive: Syncope - 3-4 minutes . Negative: Headache All Other Systems Reviewed And Are Negative: Yes Physical Exam - Summary Physical Exam Summary: VITAL SIGNS: Reviewed. GENERAL: Patient is a well-developed and nourished male who is lying comfortable in the stretcher. Patient is not in any acute respiratory distress. HEAD AND FACE: No signs of trauma. No ecchymosis, hematomas or skull depressions. No sinus tenderness. EYES: PERRLA, EOMI x 2, No injected conjunctiva, no nystagmus. EARS: Hearing grossly intact. Ear canals and tympanic membranes are within normal limits. MOUTH: Oropharynx within normal limits. NECK: Supple, trachea is midline, no adenopathy, no JVD, no carotid bruit, no c- spine tenderness, neck with full ROM. CHEST: Symmetric, no tenderness at palpation LUNGS: Clear to auscultation bilaterally. No wheezing or crackles. CVS: Irregular rate and rhythm, S1 and S2 present, no murmurs or gallops appreciated. ABDOMEN: Soft, non-tender. No signs of distention. No rebound no guarding, and no masses palpated. Bowel sounds are normal. EXTREMITIES: FROM in all major joints, no edema, no cyanosis or clubbing. NEURO: Alert and oriented x 3. No acute neurological deficits. Speech is normal and follows commands. SKIN: Dry and warm. GCS: 15. Triage Information Reviewed: Yes Vital Signs On Initial Exam: Temp Pulse Resp BP SpO2 FiO2 Vital Signs Reviewed: Yes - [place] Coma Scale Best Eye Response: 4 - Spontaneous Best Motor Response: 6 - Obeys Commands Best Verbal Response: 5 - Oriented Coma Scale Total: 15 Procedures - Sedation Patient Received Moderate/Deep Sedation with Procedure: No Diagnostics - Laboratory Result Diagrams: 03/27/19 12:30 03/27/19 12:30 Lab Statement: Any lab studies that have been ordered have been reviewed, and results considered in the medical decision making process. - Radiology Chest X-Ray Radiology Interpretation Completed By: Radiologist Summary of Radiographic Findings: Impression: Hyperinflation, consistent with COPD. No active cardiopulmonary disease. ED physician has reviewed this report. Brain CT Radiology Interpretation Completed By: Radiologist Summary of Radiographic Findings: Impression: No acute intracranial pathology. ED physician has reviewed this report. - EKG 1353 Cardiac Rate: NL - 89 BPM EKG Rhythm: Atrial Flutter ST Segment: Normal Ectopy: None Summary of EKG Findings: An EKG at 1353 reveals Atrial Flutter at a rate of 89 BPM with paired ventricular premature complexes with borderline right axis deviation. No STEMI. No acute changes. Dr. Cool interpreted this report at 0205 03/27/2019. Re-Evaluation - Re-Evaluation First Eval Re-Evaluation Time: 16:40 Comment: Patient is agreeable with admission plan. Course/Dx Assessment/Plan: This pt is a 79 Y/O M brought into [facility] by EMS after experiencing a witnessed syncopal event at a local earlier today. He states that he was unconscious a few minutes that was witnessed. He states that prior to the syncopal episode he had palpitations that he described as irregular. He denies any headaches, CP, SOB, dizziness, N/V, diaphoresis, and visual changes before or after the event. He states that he has never had a syncopal event like this before. He is currently on eliquis due to AFIB and HTN. He has no aggravating or alleviating factors. In the ED course, the patient was placed on a coffin maker, IV access was obtained, IV fluids started. Blood test w/o a significant abnormality except for slight anemia with hemoglobin of 13.2 and hematocrit of 39, INR of 1.33, APTT of 44.8, and glucose of 109. Urinalysis is negative for UTI. Serum alcohol of <10. Chest x-ray impression: Hyperinflation, consistent with COPD. No active cardiopulmonary disease. Head CT impression: No acute intracranial pathology. EKG shows an atrial flutter at a controlled rate. Because the patient had the syncopal episode and also has been having episodes of bradycardia, I discussed my physical exam and findings with Dr. Mares from the hospital services, and she accepted the patient for admission. The patient is hemodynamically stable alert and oriented 3. - Diagnoses Differential Diagnosis/HQI/PQRI: Positive: Cerebral Vascular Accident, Coronary Artery Disease, Dysrhythmia, Seizure, Transient Ischemic Attack, Vasovagal Episode Provider Diagnoses: Syncope - Physician Notifications Discussed Care of Patient With: Jennifer Mares - hospitalist Time Discussed With Above Provider: 16:35 Instructed by Provider To: Admit As Observation - I discussed the patients case with Dr. Mares, who accepts the patient for admission. Discharge ED - Sign-Out/Discharge Documenting (check all that apply): Patient Departure - Patient accepted for admission by Dr. Mares. - Discharge Plan Condition: Stable Disposition: ADMITTED TO [facility] - Billing Disposition and Condition Condition: STABLE Disposition: Admitted to [facility] - Attestation Statements Document Initiated by Scribe: Yes Documenting Scribe: Zoya Faith Provider For Whom Roosevelt is Documenting (Include Credential): Td Cool MD Scribe Attestation: I, Zoya Faith, scribed for Td Cool MD on 03/27/19 at 2141. Scribe Documentation Reviewed: Yes Provider Attestation: The documentation as recorded by the [place] Natalie George accurately reflects the service I personally performed and the decisions made by me, Td Cool MD Status of Scribe Document: Viewed
[2019-03-27] MEDS: NS 0.9% 1000 ML** 1,000 ML IV SCH ×2 (13:55→18:26)
[2019-03-27 14:08] LABS: ABS Eosinophils 0.1 10^3/ul (0-0.6); ABS Lymphocytes 0.6 10^3/ul (1.0-4.8); ABS Monocytes 0.6 10^3/ul (0-0.8); ABS Neutrophils 6.6 10^3/ul (1.5-7.7); Eosinophil % 1.2 %; Hematocrit 39 % (42-52); Hemoglobin 13.2 g/dL (14.0-18.0); Lymphocyte % 7.4 %; Mean Corpuscular HGB Conc 34 g/dL (31-36); Mean Corpuscular Hemoglobin 28 pg (27-31); Mean Corpuscular Volume 83 fL (80-94); Mean Platelet Volume 9.2 fL (7.4-10.4); Platelet Count 303 10^3/uL (150-450); Red Blood Count 4.68 10^6 /uL (4.18-5.48); Red Cell Distribution Width 16 % (10-15); White Blood Count 7.8 10^3/uL (3.5-10.8)
[2019-03-27 14:12] LABS: Urine Appearance Clear; Urine Bilirubin Negative (Negative); Urine Blood Negative (Negative); Urine Color Yellow; Urine Glucose Negative (Negative); Urine Ketones Negative (Negative); Urine Nitrite Negative (Negative); Urine Protein 1+(30 mg/dL) (Negative); Urine Specific Gravity 1.005 (1.010-1.030); Urine Urobilinogen Negative (Negative)
[2019-03-27 14:13] LABS: Urine Bacteria Absent (Absent); Urine Red Blood Cell Absent (Absent); Urine Squamous Epithelial Cell Present (Absent); Urine White Blood Cell Absent (Absent)
[2019-03-27 14:18] LABS: Activated Partial Thrombo Time 44.8 seconds (26.0-38.0); INR 1.33 (0.82-1.09)
[2019-03-27 14:25] LABS: Anion Gap 7 mmol/L (2-11); BUN/Creatinine Ratio 17.4 (8-20); Blood Urea Nitrogen 12 mg/dL (6-24); CO2 Carbon Dioxide 27 mmol/L (22-32); Chloride 103 mmol/L (101-111); Glucose 109 mg/dL (70-100); Potassium 3.9 mmol/L (3.5-5.0); Sodium 137 mmol/L (135-145)
[2019-03-27 14:26] LABS: ALT 17 U/L (7-52); AST 16 U/L (13-39); Albumin 4.3 g/dL (3.2-5.2); Albumin/Globulin Ratio 1.4 (1-3); Alkaline Phosphatase 103 U/L (34-104); Calcium 9.3 mg/dL (8.6-10.3); Creatine Kinase 36 U/L (10-223); EGFR African American 134.2 (>60); EGFR Non-African American 110.9 (>60); Globulin 3.1 g/dL (2-4); Magnesium 2.2 mg/dL (1.9-2.7); Total Protein 7.4 g/dL (6.4-8.9)
[2019-03-27 14:27] LABS: Troponin I 0.01 ng/mL (<0.03)
[2019-03-27 14:46] LABS: Alcohol < 10 mg/dL (<10)
[2019-03-27 15:01] LABS: TSH (Thyroid Stimulating Horm) 1.64 mcIU/mL (0.34-5.60)
[2019-03-27] MEDS ORDERED: Acetaminophen / Codeine* #3 (300 MG/30 MG) TAB PO PRN (16:46)
--- NOTE | 2019-03-27 18:23 | HP ---
CC: Dr. Menjivar; Dr. Smith; Dr. Scott * HISTORY AND PHYSICAL: DATE OF ADMISSION: 03/27/19 PRIMARY CARE PROVIDER: Dr. Menjivar. CHIEF COMPLAINT: "I passed out." HISTORY OF PRESENT ILLNESS: Dat Goodman is a 79-year-old male with history of persistent atrial fibrillation, on apixaban, who stated that today he was at shooting range, he bent down to pick something from the ground and when he was straightening himself up he started feeling dizzy and subsequently he passed out. He stated that he must have been on the ground for a minute or two until his consciousness returned. He denies any chest pain or shortness of breath. There was no incontinence. He stated that he felt like fainting just before he did so. Approximately a week ago, he had bronchitis and he was placed on azithromycin. The last dose of this medication was 2 days ago. His cough has resolved and he stated that he has had a good appetite and no other problems otherwise. The patient is currently in atrial fibrillation/flutter with a heart rate anywhere from 35 to 75. He is going to be placed on overnight observation with a diagnosis of syncope. PAST MEDICAL HISTORY: 1. Hypertension. 2. Atrial fibrillation/flutter, status post cardioversion in February of 2018. Currently persistent atrial fibrillation. 3. History of an episode of dizziness while on beta-blockers in May of 2018. At that point, beta-blockers were held. The patient also stated that Dr. Smith, the patient's furnace maintenance performed a Holter monitor on the patient within the past couple of months and stated that the patient may need a pacemaker in the future. 4. The patient has obstructive sleep apnea and uses CPAP. PAST SURGICAL HISTORY: 1. Cholecystectomy. 2. Ankle fracture with ORIF in . 3. Multiple teeth extracted in May of 2018. MEDICATIONS AT HOME: Include: 1. Terazosin 1 mg daily. 2. Atacand 32 mg daily. 3. Atorvastatin 20 mg daily. 4. Apixaban 5 mg b.i.d. 5. Tylenol with Codeine on a p.r.n. basis. ALLERGIES: No known drug allergies. FAMILY HISTORY: Positive for uncle with a stroke. SOCIAL HISTORY: The patient denies any drug use. He drinks rarely alcohol. He smoked 1 pack per day for 50 years, quit in 2010. He lives with his , who is his healthcare proxy. REVIEW OF SYSTEMS: Please see history of present illness. All the remaining 12 systems were reviewed with the patient and were otherwise negative. PHYSICAL EXAMINATION GENERAL: The patient is a very pleasant 79-year-old male, who is in no acute distress. The patient is alert and oriented x3. VITAL SIGNS: Blood pressure of 157/82, heart rate of 59 and irregularly irregular, respiratory rate 21, oxygen saturation 95% on room air, temperature of 97.9. HEENT: Head: Atraumatic, normocephalic. Eyes: Pupils are equal, reactive to light and accommodation. Oropharynx is clear. Mucosa moist. NECK: Supple. No JVD. No bruits bilaterally. RESPIRATORY: Clear to auscultation bilaterally. CARDIOVASCULAR: Irregularly irregular and rhythm. No murmur. ABDOMEN: Soft, nontender. Bowel sounds are present in all 4 quadrants. EXTREMITIES: There is no edema. Pulses +2 bilaterally. No clubbing or cyanosis. NEUROLOGIC: Speech is clear. Cranial nerves II through XII grossly intact. Motor strength is 5/5 bilaterally. DIAGNOSTIC STUDIES/LAB DATA: Sodium of 137, potassium 3.9, chloride 103, carbon dioxide 27, BUN 12, creatinine 0.69. Liver function test unremarkable. Brain natriuretic peptide was 59. TSH of 1.64. Troponin of 0.01. CBC: White blood cell count of 7.8, hemoglobin of 13.2, hematocrit of 39, and platelets of 303. The patient's portable chest x-ray, impression: "Hyperinflation consistent with COPD. No active cardiopulmonary disease." The patient's brain CT, impression: "No acute intracranial pathology." The patient's EKG showing AFib/flutter with frequent PVCs with heart rate occasionally going down to approximately 35 beats per minute. ASSESSMENT AND PLAN: 1. Syncope. It appears to be vasovagal, although the patient is in atrial flutter with rate occasionally going down to 35 beats per minute. I discussed the case briefly with Dr. Scott. Dr. Alexandra will see the patient for a consultation tomorrow morning. Nevertheless, the patient is going to be placed n.p.o. in case he were a candidate for pacemaker. At this point, we are unsure if Dr. Alexandra will be able to put the pacemaker in the morning depending on if he is going to be comfortable placing the pacemaker in a patient whose last dose of Eliquis was today in the morning. In either way, I will hold the patient's Eliquis and place the patient n.p.o. for the time being. I will also obtain transthoracic echocardiogram. I will try to obtain medical records from Dr. Smith's office in regards to his last note as well as the last Holter monitoring. At this point, there are no other precipitating factors. The patient's electrolytes are fine. His TSH is within normal limits. He appears well hydrated. 2. In regards to DVT prophylaxis, as above, his Eliquis is going to be held and he is going to be placed on sequential compression devices. 3. For obstructive sleep apnea, the patient is going to be continued on hospital CPAP. 4. In regards to the patient's hypertension, the patient's systolic pressures are not very high. We will continue Hytrin. We will stop Atacand. 5. The patient's code status is full. His surrogate is his . TIME SPENT: Approximately 62 minutes was spent on history and physical taking, more than half that time was spent [id number] with the patient during the interview and physical exam. [id number]/[facility] #: [id number] ELEANOR
[2019-03-27] MEDS ORDERED: hydrALAZINE IV* 20 MG/ML VIAL IV SLOW PU PRN (19:24)
[2019-03-27] MEDS ORDERED: Apixaban* 5 MG TAB PO SCH (21:00)
[2019-03-28] MEDS: NS 0.9% 1000 ML** 1,000 ML IV SCH ×2 (00:47→10:02)
[2019-03-28 07:10] LABS: BUN/Creatinine Ratio 15.2 (8-20); Calcium 8.6 mg/dL (8.6-10.3); EGFR African American 114.8 (>60); EGFR Non-African American 94.9 (>60); Potassium 4.2 mmol/L (3.5-5.0)
[2019-03-28] MEDS ORDERED: Terazosin CAP* 1 MG PO SCH (09:00)
--- NOTE | 2019-03-28 10:00 | ECHO ---
*[facility]* [place] [address] Fax #: [phone] Transthoracic Echocardiogram Patient: Dat Goodman : 1940 Study Date: 03/28/2019 Age: 79 Gender: M HR: 52 bpm Height: 74 in /188 cm BSA: 2.51 m^2 Weight: 279.4 lb /127 kg BMI: 36 kg/m^2 *Airplane Navigator: * Reba Desai [facility] *Referring Physician: * Jennifer Mares *Reading Physician: * Fish Alexandra MD Indications: Syncope. History: Atrial flutter. Functional status: Following treatment plan for sleep apnea. Risk factors: Former tobacco use. Hypertension. Obese. Dyslipidemia. Conclusions Summary: - Left ventricle: Systolic function is at the lower limits of normal. The estimated ejection fraction is 50-55%. Wall motion is normal; there are no regional wall motion abnormalities. - Right ventricle: Systolic function is normal. Systolic pressure is mildly increased. - Left atrium: The atrium is severely dilated. - Mitral valve: There is mild to moderate regurgitation. - Aortic valve: Thickening, consistent with sclerosis. There is no evidence of stenosis. There is no significant regurgitation. - Tricuspid valve: There is trace to mild regurgitation. - Pericardium, extracardiac: There is no significant pericardial effusion. - Compared to study of 03/09/18, the left ventricle function is the same. The left atrium enlargement is worse. Study data: Transthoracic echocardiogram. Procedure: Transthoracic echocardiography was performed. Image quality was fair. The study was technically limited due to body habitus. Complete 2D, spectral Doppler, and color flow Doppler. Location: Bedside. Patient status: Inpatient. Patient room number: 433. Rhythm: Atrial flutter. Findings Left ventricle: The cavity size is normal. Wall thickness is moderately increased. Systolic function is at the lower limits of normal. The estimated ejection fraction is 50-55%. Wall motion is normal; there are no regional wall motion abnormalities. Left ventricular diastolic function parameters are indeterminate. Right ventricle: The cavity size is moderately dilated. Wall thickness is moderately increased. Systolic function is normal. Systolic pressure is mildly increased. Ventricular septum: There is septal flattening of the interventricular septum consistent with RV volume or pressure overload. Left atrium: The atrium is severely dilated. Right atrium: The atrium is moderately to severely dilated. Mitral valve: The leaflets are mildly thickened. There is no evidence of stenosis. There is mild to moderate regurgitation. Aortic valve: The valve is trileaflet. The leaflets are moderately thickened. Thickening, consistent with sclerosis. There is no evidence of stenosis. There is no significant regurgitation. Tricuspid valve: The leaflets are normal thickness. There is no evidence of stenosis. There is trace to mild regurgitation. Pulmonic valve: The leaflets are normal thickness. There is no evidence of stenosis. There is trace regurgitation. Aorta: Aortic root: The aortic root is appears normal. Ascending aorta: The ascending aorta is mildly dilated. Aortic arch: The aortic arch is poorly visualized. Pericardium: A prominent pericardial fat pad is present. There is no significant pericardial effusion. Pulmonary arteries: The main pulmonary artery is normal-sized. Systolic pressure is mildly increased. Systemic veins: Inferior vena cava: The vessel is dilated. There is (< 50%) respiratory change in the IVC dimension. Measurements Left ventricle Value Ref Aortic valve Value Ref REYNALDO, LAX 5.1 cm 4.2 - 5.8 Elijah diam, ED 2.2 cm ----- ESD, LAX 3.7 cm 2.5 - 4.0 Elijah diam/bsa, ED 0.9 cm/m^2 ----- FS, LAX 29 % 25 - 43 Peak v, S 1.54 m/sec ----- PW, ED, LAX (H) 1.4 cm 0.6 - 1.0 VTI, S 26.0 cm ----- FS 29 % 25 - 43 Mean grad, S 3.0 mm Hg ----- PW, ED (H) 1.4 cm 0.6 - 1.0 Peak grad, S 9.0 mm Hg ----- E', lat elijah, TDI (L) 7.4 cm/sec >=10.0 LVOT/AV, VTI ratio 0.81 -- --- E/e', lat elijah, 17 TDI Mitral valve Value Ref E', med elijah, TDI (L) 5.8 cm/sec >=7.0 Peak E 1.27 m/sec -- --- E/e', med elijah, 22 Decel time 189 ms ----- TDI Peak grad, D 6.5 mm Hg ----- E', avg, TDI 6.6 cm/sec E/e', avg, TDI (H) 19 <=14 Pulmonic valve Value Re f Peak v, S 1.05 m/sec ----- LVOT Value Ref Peak grad, S 4.0 mm Hg ----- Peak dilia, S 0.95 m/sec VTI, S 21.0 cm Tricuspid valve Value Ref Mean grad, S 2 mm Hg TR peak v 2.5 m/sec <=2.8 Peak RV-RA grad, S 25 mm Hg ----- Ventricular septum Value Ref IVS, ED (H) 1.5 cm 0.6 - 1.0 Aortic root Value Ref Root diam 3.6 cm <4.5 Right ventricle Value Ref AW thickness, ED (H) 1.2 cm 0.1 - 0.5 Ascending aorta Value Ref REYNALDO, LAX 4.4 cm AAo AP diam, S 3.8 cm ----- REYNALDO minor ax, A4C (H) 4.5 cm 1.9 - 3.5 mid Decending aorta Value Ref Pressure, S 40 mm Hg Vinnie peak dilia 0.53 m/sec ----- Left atrium Value Ref Pulmonary artery Value Ref AP dim, ES (H) 5.50 cm 3.00 - Pressure, S 36.0 mm Hg ----- 4.00 ML dim, A4C 5.0 cm Inferior vena cava Value Ref SI dim, A4C 6.9 cm Diam 2.5 cm ----- Vol/bsa, ES, 1-p (H) 48 ml/m^2 12 - 37 A4C Vol/bsa, ES, A/L (H) 63 ml/m^2 16 - 34 Right atrium Value Ref SI dim, ES (H) 6.7 cm 3.4 - 5.3 ML dim, ES, A4C (H) 5.1 cm 2.6 - 4.4 Estimated RAP 15 mm Hg Legend: (L) and (H) chaim values outside specified reference range. Prepared and electronically signed by Fish Alexandra MD 03/28/2019 10:00
[2019-03-28] MEDS: Atorvastatin* 20 MG TAB PO SCH (10:02)
[2019-03-28] MEDS: Valsartan TAB* 160 MG PO SCH (10:11)
--- NOTE | 2019-03-28 10:47 | PN ---
Subjective Date of Service: 03/28/19 Interval History: Patient has ambulated today and denies dizziness/lightheaded sensation, nor at rest. Denies palpitations, chest pain, headache, difficulty breathing, abd pain. Objective Active Medications: Acetaminophen (Tylenol Tab*) 650 mg PO Q4H PRN PRN Reason: PAIN-MILD/TEMP >/= 100.4 Acetaminophen/Codeine Phosphate (Tylenol/Codeine 30 Mg Tab*) 1 tab PO Q6HR PRN PRN Reason: PAIN Atorvastatin Calcium (Lipitor*) 20 mg PO DAILY [facility] Last Admin: 03/28/19 10:02 Dose: 20 mg Hydralazine HCl (Apresoline Iv*) 5 mg IV SLOW PU Q6H PRN PRN Reason: SBP > 185 Cefazolin Sodium/Dextrose (Kefzol 2 Gm Premix In Ors(*)) 2 gm in 50 mls @ 100 mls/hr IVPB ONCE ONE Stop: 03/29/19 07:29 Sodium Chloride (Ns 0.9% 1000 Ml) 1,000 mls @ 150 mls/hr IV PER RATE [facility] Valsartan (Diovan Tab*) 160 mg PO DAILY [facility]; Protocol Last Admin: 03/28/19 10:11 Dose: 160 mg Vital Signs - 8 hr 03/28/19 03/28/19 02:59 07:15 Temperature 98.7 F 98.0 F Pulse Rate 74 77 Respiratory 18 20 Rate Blood Pressure 131/47 151/93 (mmHg) O2 Sat by Pulse 95 97 Oximetry Oxygen Devices in Use Now: None Appearance: Elderly white male, who appears stated age, sitting in recliner, appearing comfortable and in NAD Eyes: No Scleral Icterus, - - PERRL Ears/Nose/Mouth/Throat: Mucous Membranes Moist Neck: Trachea Midline Respiratory: Symmetrical Chest Expansion and Respiratory Effort, Clear to Auscultation Cardiovascular: NL Sounds; No Murmurs; No JVD, - - irregularly irregular rhythm Abdominal: - - abd soft, nontender, nondistended Extremities: No Edema, No Clubbing, Cyanosis Skin: No Rash or Ulcers Neurological: Alert and Oriented x 3, NL Muscle Strength and Tone Result Diagrams: 03/27/19 12:30 03/28/19 06:34 Assess/Plan/Problems-Billing Assessment: 79 yo white male with PMHx Atrial fib/flutter, HTN, VIGNESH on CPAP presents after a syncopal episode. - Patient Problems (1) Syncope Current Visit: Yes Status: Acute Code(s): R55 - SYNCOPE AND COLLAPSE SNOMED Code(s): 025494657 Comment: -etiology seems most likley related to bradycardia. Since admission, HR has been overall rate controlled but reportedly was bradycardic to the 30s on telemetry in the ED -not orthostatic, though it appears the orthostatic VS were taken after 1L NS given so the accuracy is unclear -appreciate cardiology consult. Dr. Alexandra plans for pacemaker tomorrow -continue telemetry (2) Atrial flutter Current Visit: Yes Status: Acute Code(s): I48.92 - UNSPECIFIED ATRIAL FLUTTER SNOMED Code(s): 0709206 Comment: -history of Afib/Aflutter -not on rate control at home -has been rate controlled on telemetry since admission as previously mentioned -on eliquis at home, on hold for plan for pacemaker (3) Hypertension Current Visit: Yes Status: Acute Code(s): I10 - ESSENTIAL (PRIMARY) HYPERTENSION SNOMED Code(s): 06133640 Comment: -continue home ARB -stopping home alpha autumn considering MICHOACANO of syncope/orthostasis (4) VIGNESH (obstructive sleep apnea) Current Visit: Yes Status: Acute Code(s): G47.33 - OBSTRUCTIVE SLEEP APNEA ( ADULT) (PEDIATRIC) SNOMED Code(s): 86170369 Comment: -on CPAP at home, continue (5) DVT prophylaxis Current Visit: Yes Status: Acute Code(s): Z29.9 - ENCOUNTER FOR PROPHYLACTIC MEASURES, UNSPECIFIED SNOMED Code(s): 678538795 Comment: -HSQ and will stop at midnight for procedure (6) Full code status Current Visit: Yes Status: Acute Code(s): Z78.9 - OTHER SPECIFIED HEALTH STATUS SNOMED Code(s): 107492454 Status and Disposition: pending pacemaker placement
--- NOTE | 2019-03-28 12:15 | CONS ---
CC: Dr. Bib Smith; Dr. Menjivar * CONSULTATION REPORT: DATE OF CONSULT: 03/28/19 ATTENDING PHYSICIAN: Dr. Fish Alexandra, Cardiology * (dictated by Shannon Thao NP). REASON FOR CONSULTATION: Symptomatic bradycardia. PRIMARY ENGRAVED ROLLER INSPECTOR: Dr. Bib Smith. PRIMARY PHYSICIAN: Dr. Menjivar. CHIEF COMPLAINT: Syncope. HISTORY OF PRESENT ILLNESS: This is a pleasant 79-year-old male patient with a notable history of persistent AFib/flutter on Eliquis therapy, first-degree AV block, AV anthony disease, hypertension, hyperlipidemia, who presented to [facility] on 03/27/19 due to witnessed syncope. The patient states that yesterday morning around 10 a[place]m. [place], while walking he noticed he "felt off." He states that he felt "mental fog"; however , preceded with activity. While bending down, he felt lightheaded. As he stood up, he had a witnessed syncopal episode. The patient states he was informed he was unconscious for approximately 2 to 3 minutes. He fell face forward in the snow, did not sustain any head injuries, did scrape his left knee. He denies chest pain, does report that he was informed he was pale after episode and felt fatigued after episode, denies palpitations or chest pain. The patient was taken to [facility]. While being evaluated in the emergency department, troponin was normal. He was in A-flutter with controlled ventricular rate; however was noted to have episodes of bradycardia. Thus, we were asked to see the patient in consultation for symptomatic bradycardia. The patient states last dose of Eliquis was 03/27/19 in the morning hours. He recently saw, Dr. Bib Smith, his primary accounts receivable analyst on 03/10/19 whom I personally spoke with. At that time, Holter monitor had been updated on 03/07, which revealed AFib/flutter during entire study. Maximum pause was 2 to 3 seconds. Maximum heart rate was 120 beats per minute. The patient was asymptomatic during that study. Dr. Smith stated he ordered an echocardiogram and had informed the patient that he had underlying AV anthony disease and probably needs an eventual permanent pacemaker. Previously, he was admitted in 2019 at [facility] due to symptomatic bradycardia with periods of heart rate in the low 40s. He had an outpatient 30-day event monitor by Dr. David Smith, which revealed persistent episodes of bradycardia , thus metoprolol was discontinued. Last ischemic evaluation was via nuclear stress test in February of 2018. Per Dr. Smith, LVEF was normal, normal wall motion, normal perfusion, low risk study. The patient offers no further complaints, does report ongoing chronic fatigue, which predates syncopal episode; denies ever having a syncopal episode prior to yesterday's event. PAST MEDICAL HISTORY: 1. Persistent AFib/flutter. 2. Hypertension. 3. Hyperlipidemia. 4. First-degree AV block. 5. Obstructive sleep apnea. PAST SURGICAL HISTORY: 1. Cardioversion in February 2018. 2. Cholecystectomy. 3. Ankle fracture with open reduction internal fixation. HOME MEDICATIONS: Per admission med rec: 1. Eliquis 5 mg p.o. b.i.d. 2. Lipitor 20 mg a day. 3. Candesartan 32 mg a day. 4. Hytrin 1 mg a day. 5. Tylenol with Codeine 30 mg tablets 1 tablet p.o. q.6 hours p.r.n. ALLERGIES: No known drug allergies. FAMILY HISTORY: Noncontributory. SOCIAL HISTORY: The patient is , lives at home with his . Listed as full code. Former tobacco user, quit 7 years ago. Denies alcohol use. Denies drug use. 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 PHYSICAL EXAM: Temperature is 98, pulse 77, respirations 20, oxygenation 97% on room air, blood pressure 151/93. General: The patient is sitting in chair upon entering room, appears in no apparent distress. He is cooperative, alert, and oriented x3; appears well nourished. HEENT: Head is atraumatic, normocephalic. Oral mucosa is moist. Tongue is midline. Neck: Supple. Trachea midline. No JVD. No carotid bruits. Cardiac: Bradycardic. S1, S2. Regular rate and rhythm. No murmur, rub, or gallop noted. Lungs: Auscultated posteriorly. No evidence of adventitious breath sounds auscultated. Respirations are unlabored. /GI: Abdomen is protuberant. Nontender. Normoactive bowel sounds x4. Extremities: Trace pretibial edema bilaterally. Otherwise, no clubbing, no cyanosis. Peripheral Vascular: 3+ brachial pulse palpated bilaterally, 2+ dorsalis pedis pulse palpated bilaterally. Skin: Abrasion noted in the left knee, otherwise intact. DIAGNOSTIC STUDIES/LAB DATA: Blood work 03/27/19: INR 1.3. Sodium 140, potassium 4.2, chloride 109, carbon dioxide 27, BUN 12, creatinine 0.79. White count 7.8, hemoglobin 13.2, hematocrit 39, platelets 303. Troponin negative x1. TSH 1.64. ECG 03/27/19: A-flutter, rate 89, frequent PVCs. Telemetry review: The patient has been in A-flutter, rate [address] 03/27/19: Per Radiology report, no acute intracranial pathology. ASSESSMENT AND PLAN: 1. Syncope in the setting of probable symptomatic bradycardia. The patient had periods of atrial fibrillation/flutter, heart rate mid to high 30s. The patient reports ongoing fatigue, denies any recurrent lightheadedness or syncope since presentation, denies chest pain. The patient was previously taken off metoprolol due to symptomatic bradycardia in 2018. I personally spoke to his primary accounts receivable analyst, Dr. David Smith, who states that recent Holter monitor from February 2019 revealed persistent atrial fibrillation/flutter , maximum pause was 2 to 3 seconds, maximum heart rate was 120 beats per minute. He has underlying atrioventricular anthony disease and was informed that he may need eventual permanent pacemaker. Given the patient presented with syncope that was likely due to symptomatic bradycardia, we will proceed with permanent pacemaker implantation. Last dose of Eliquis was 03/27/19. Procedure was reviewed with the patient including risks and benefits but not limited to bleeding, infection, vessel damage, risks of cardiac tamponade, pocket hematoma , . The patient is agreeable to proceeding with procedure. The patient is n.p.o. Consent to be obtained by proceduralist, Dr. Fish Alexandra. 2. History of persistent atrial fibrillation/flutter. Historically on Eliquis 5 mg p.o. b.i.d. 3. History of hypertension, on ARB therapy. 4. History of sleep apnea with outpatient CPAP compliance. 5. Disposition. Pending course. Dr. Fish Alexandra has personally seen and examined the patient and agrees with the above assessment and plan. Thank you for this kind consultation. Any future questions or concerns, please do not hesitate to contact our practice. We will follow the patient closely. SHANNON THAO, GENIE [id number]/[facility] #: [id number] ELEANOR
[2019-03-28] MEDS: Acetaminophen TAB* 325 MG PO PRN ×2 (12:28→18:42)
[2019-03-28] MEDS: Heparin VIAL(*) 5000 UNITS/ML VIAL (FIVE THOUSAND) SUBCUT SCH ×2 (15:00→20:49)
[2019-03-28] MEDS ORDERED: Melatonin 3 MG TAB PO PRN (20:10)
[2019-03-29] MEDS ORDERED: NS 0.9% 1000 ML** 1,000 ML IV SCH (06:00)
[2019-03-29] MEDS ORDERED: ceFAZolin 2 GM PREMIX in ORs 2 GM/50 ML BAG IVPB ONE (07:00)
[2019-03-29] MEDS: Atorvastatin* 20 MG TAB PO SCH (09:39)
[2019-03-29] MEDS: Valsartan TAB* 160 MG PO SCH (09:39)
[2019-03-29] MEDS ORDERED: ceFAZolin 2 GM in NS 100 ml - ONCE (Pharmacy Admix) IVPB ONE (10:00)
[2019-03-29] MEDS ORDERED: Midazolam* 1 MG/ML 5 ML VIAL (5 MG) ONE (10:02)
[2019-03-29] MEDS ORDERED: fentaNYL* 50 MCG/ML 2 ML VIAL (100 MCG VIAL) ONE (10:02)
[2019-03-29] MEDS ORDERED: Lidocaine 1% INJ* 10 MG/ML 30 ML SDV ONE (10:03)
[2019-03-29] MEDS ORDERED: Naloxone* 0.4 MG/ML 1 ML VIAL ONE (10:03)
[2019-03-29] MEDS ORDERED: ceFAZolin 1 GM/10 ML flush(*) SYRINGE for pocket flush (cardiology) FLUSH ONE (10:03)
[2019-03-29] MEDS ORDERED: Flumazenil* 0.1 MG/ML 5 ML MDV ONE (10:03)
[2019-03-29] MEDS: Acetaminophen TAB* 325 MG PO PRN (18:22)
--- NOTE | 2019-03-29 19:35 | PN ---
Subjective Date of Service: 03/29/19 Interval History: Patient evaluated on floor after pacemaker performed. Patient has no complaints. Overall feeling well. Tolerated procedure well and has no c/o pain. Denies chest pain, difficulty breathing, dizziness/lightheadedness at rest, abd pain. Objective Active Medications: Acetaminophen (Tylenol Tab*) 650 mg PO Q4H PRN PRN Reason: PAIN-MILD/TEMP >/= 100.4 Last Admin: 03/29/19 18:22 Dose: 650 mg Acetaminophen/Codeine Phosphate (Tylenol/Codeine 30 Mg Tab*) 1 tab PO Q6HR PRN PRN Reason: PAIN Atorvastatin Calcium (Lipitor*) 20 mg PO DAILY [facility] Last Admin: 03/29/19 09:39 Dose: 20 mg Hydralazine HCl (Apresoline Iv*) 5 mg IV SLOW PU Q6H PRN PRN Reason: SBP > 185 Cefazolin Sodium 1 gm/ Sodium (Chloride) 50 mls @ 200 mls/hr IVPB Q8H [facility] Stop: 03/30/19 11:44 Melatonin (Melatonin) 3 mg PO BEDTIME PRN PRN Reason: SLEEP Last Admin: 03/28/19 20:49 Dose: 3 mg Valsartan (Diovan Tab*) 160 mg PO DAILY [facility]; Protocol Last Admin: 03/29/19 09:39 Dose: 160 mg Vital Signs - 8 hr 03/29/19 03/29/19 03/29/19 11:32 11:57 12:02 Temperature Respiratory Rate Blood Pressure 153/77 (mmHg) O2 Sat by Pulse 95 95 Oximetry 03/29/19 03/29/19 03/29/19 12:27 12:32 13:26 Temperature Respiratory Rate Blood Pressure 148/79 133/78 (mmHg) O2 Sat by Pulse 95 Oximetry 03/29/19 03/29/19 03/29/19 13:32 13:56 14:26 Temperature Respiratory Rate Blood Pressure 152/68 136/65 (mmHg) O2 Sat by Pulse 97 Oximetry 03/29/19 03/29/19 03/29/19 14:32 14:58 15:26 Temperature Respiratory Rate Blood Pressure 159/105 133/71 (mmHg) O2 Sat by Pulse 97 Oximetry 03/29/19 03/29/19 03/29/19 15:56 16:26 16:56 Temperature Respiratory Rate Blood Pressure 148/70 156/81 141/73 (mmHg) O2 Sat by Pulse Oximetry 03/29/19 03/29/19 03/29/19 17:28 17:56 17:58 Temperature 98.1 F Respiratory 20 Rate Blood Pressure 168/87 170/79 (mmHg) O2 Sat by Pulse 97 Oximetry Oxygen Devices in Use Now: None Appearance: Elderly white male,laying in bed, appearing comfortable and in NAD Eyes: No Scleral Icterus, - - PERRL Ears/Nose/Mouth/Throat: Mucous Membranes Moist Neck: Trachea Midline Respiratory: Symmetrical Chest Expansion and Respiratory Effort, Clear to Auscultation Cardiovascular: NL Sounds; No Murmurs; No JVD, RRR, - - left anterior chest bandage from pacemaker with trace blood Abdominal: - - abd soft, nontender, nondistended Extremities: No Edema, No Clubbing, Cyanosis Skin: No Rash or Ulcers Neurological: Alert and Oriented x 3, NL Muscle Strength and Tone Result Diagrams: 03/27/19 12:30 03/28/19 06:34 Assess/Plan/Problems-Billing Assessment: 79 yo white male with PMHx Atrial fib/flutter, HTN, VIGNESH on CPAP presents after a syncopal episode. - Patient Problems (1) Syncope Current Visit: Yes Status: Acute Code(s): R55 - SYNCOPE AND COLLAPSE SNOMED Code(s): 821648503 Comment: -etiology seems most likley related to bradycardia. Since admission, HR has been overall rate controlled but reportedly was bradycardic to the 30s on telemetry in the ED -not orthostatic, though it appears the orthostatic VS were taken after 1L NS given so the accuracy is unclear -appreciate cardiology consult -s/p pacemaker placement today -continue telemetry (2) Atrial flutter Current Visit: Yes Status: Acute Code(s): I48.92 - UNSPECIFIED ATRIAL FLUTTER SNOMED Code(s): 3412608 Comment: -history of Afib/Aflutter -not on rate control at home -has been rate controlled on telemetry since admission as previously mentioned -on eliquis at home, on hold for plan for pacemaker, will d/w cardiology tomorrow (3) Hypertension Current Visit: Yes Status: Acute Code(s): I10 - ESSENTIAL (PRIMARY) HYPERTENSION SNOMED Code(s): 10843810 Comment: -continue home ARB -stopping home alpha autumn considering MICHOACANO of syncope/orthostasis -hypertensive today since this change, starting amlodipine (4) VIGNESH (obstructive sleep apnea) Current Visit: Yes Status: Acute Code(s): G47.33 - OBSTRUCTIVE SLEEP APNEA ( ADULT) (PEDIATRIC) SNOMED Code(s): 13043755 Comment: -on CPAP at home, continue (5) DVT prophylaxis Current Visit: Yes Status: Acute Code(s): Z29.9 - ENCOUNTER FOR PROPHYLACTIC MEASURES, UNSPECIFIED SNOMED Code(s): 436943800 Comment: -HSQ held for pacemaker placement today -SCDs (6) Full code status Current Visit: Yes Status: Acute Code(s): Z78.9 - OTHER SPECIFIED HEALTH STATUS SNOMED Code(s): 442461914 Status and Disposition: anticipate d/c to home when stable
[2019-03-29] MEDS: ceFAZolin VIAL(*) 1 GM in NS 0.9% 50 ML* 50 ML IVPB SCH (21:12)
[2019-03-30] MEDS: Acetaminophen TAB* 325 MG PO PRN (00:06)
[2019-03-30] MEDS: ceFAZolin VIAL(*) 1 GM in NS 0.9% 50 ML* 50 ML IVPB SCH ×2 (03:40→10:26)
[2019-03-30 08:25] VITALS: BP 140/60
[2019-03-30] MEDS: Atorvastatin* 20 MG TAB PO SCH (08:35)
[2019-03-30] MEDS: Valsartan TAB* 160 MG PO SCH (08:35)
[2019-03-30] MEDS ORDERED: amLODIPine TAB* 5 MG PO SCH (09:00)
--- NOTE | 2019-03-30 10:22 | PN ---
<Shannon Thao - Last Filed: 03/30/19 10:22> Subjective Date of Service: 03/30/19 - symptomatic bradycardia Interval History: No events last night. Patient denies chest pain, sob, dizziness. States he is getting use to the arm immobilizer. at bedside and I was able to reviewe wound care with her in addition to patient. Medications Active Medications: Acetaminophen (Tylenol Tab*) 650 mg PO Q4H PRN PRN Reason: PAIN-MILD/TEMP >/= 100.4 Last Admin: 03/30/19 00:06 Dose: 650 mg Acetaminophen/Codeine Phosphate (Tylenol/Codeine 30 Mg Tab*) 1 tab PO Q6HR PRN PRN Reason: PAIN Amlodipine Besylate (Norvasc Tab*) 5 mg PO DAILY [facility] Last Admin: 03/30/19 08:35 Dose: 5 mg Atorvastatin Calcium (Lipitor*) 20 mg PO DAILY [facility] Last Admin: 03/30/19 08:35 Dose: 20 mg Cephalexin HCl (Keflex Cap*) 250 mg PO TID [facility] Stop: 04/03/19 06:59 Hydralazine HCl (Apresoline Iv*) 5 mg IV SLOW PU Q6H PRN PRN Reason: SBP > 185 Cefazolin Sodium 1 gm/ Sodium (Chloride) 50 mls @ 200 mls/hr IVPB Q8H [facility] Stop: 03/30/19 11:44 Last Admin: 03/30/19 03:40 Dose: 200 mls/hr Melatonin (Melatonin) 3 mg PO BEDTIME PRN PRN Reason: SLEEP Last Admin: 03/28/19 20:49 Dose: 3 mg Valsartan (Diovan Tab*) 160 mg PO DAILY [facility]; Protocol Last Admin: 03/30/19 08:35 Dose: 160 mg Objective Vital Signs: Temp Pulse Resp BP Pulse Ox 98 F 80 16 140/60 93 03/30/19 07:25 03/30/19 07:25 03/30/19 07:25 03/30/19 07:25 03/30/19 07:25 Oxygen Devices in Use Now: None Appearance: Sitting in chair, A+O x3, cooperative with exam, NAD, at bedside. Ears/Nose/Mouth/Throat: NL Teeth, Lips, Gums, Clear Oropharnyx, Mucous Membranes Moist Neck: NL Appearance and Movements; NL JVP Respiratory: Symmetrical Chest Expansion and Respiratory Effort, Clear to Auscultation Skin: - - left anterior device site evaluated. no pocket hematoma, macho in situ, scant dried blood noted on dressing, non tender, no erythema. Neurological: Alert and Oriented x 3 Lines/Tubes/Other Access: Clean, Dry and Intact Peripheral IV Laboratory Results: 03/27/19 12:30 03/28/19 06:34 INR (Anticoag Therapy) 1.33 (0.82-1.09) H 03/27/19 12:30 APTT 44.8 seconds (26.0-38.0) H 03/27/19 12:30 Total Bilirubin 0.60 mg/dL (0.2-1.0) 03/27/19 12:30 AST 16 U/L (13-39) 03/27/19 12:30 ALT 17 U/L (7-52) 03/27/19 12:30 Alkaline Phosphatase 103 U/L (34-104) 03/27/19 12:30 B-Natriuretic Peptide 59 pg/mL (<=100) 03/27/19 12:30 Total Protein 7.4 g/dL (6.4-8.9) 03/27/19 12:30 Albumin 4.3 g/dL (3.2-5.2) 03/27/19 12:30 Globulin 3.1 g/dL (2-4) 03/27/19 12:30 Albumin/Globulin Ratio 1.4 (1-3) 03/27/19 12:30 TSH 1.64 mcIU/mL (0.34-5.60) 03/27/19 12:30 03/27/19 12:30 Troponin I 0.01 Diagnostic Imaging: Patient Name: AMAIRANI CHRISTINE Medical Record#: [id number] Ordering Physician: Fish Alexandra MD Acct.#: [id number] : 1940 Age: 79 Sex: M Location: [address] [place] [address] MEDICAL/TELEMETRY Exam Date: 03/30/19 0800 ADM Status: ADM IN Order Information: CHEST PA & LAT 2 VWS Accession Number: [id number] CPT: 55185 HISTORY: S/P Device Implant COMPARISONS: None relevant available at the time of dictation. VIEWS: 4: Frontal dual-energy and lateral views of the chest. FINDINGS: CARDIOMEDIASTINAL SILHOUETTE: The cardiomediastinal silhouette is normal. Cardiac pacemaker with the battery pack in the left anterior chest wall and electrodes at the level of right ventricle noted ABIMAEL: The abimael are normal. PLEURA: The costophrenic angles are sharp. No pleural abnormalities are noted. LUNG PARENCHYMA: The lungs are clear. There is hyperaeration with increase in the AP dimension of the chest and flattening of both domes of the diaphragm. ABDOMEN: The upper abdomen is clear. There is no subphrenic gas. BONES AND SOFT TISSUES: No bone or soft tissue abnormalities are noted. OTHER: None. IMPRESSION: Moderate COPD <Electronically signed by Tammy Oviedo MD in [place]> 03/30/19836 Dictated By: Tammy Oviedo MD Dictated Date/Time: 03/30/19834 Transcribed Date/Time: 03/30/19834 Copy to: CC:Danielle Hernandez DO; Mayank Menjivar MD; Jennifer Mares MD; Fish Alexandra MD Imaging - [facility] Imaging - [place] [facility] [address] [address] ph ([phone]) ph ([phone]) ph ([phone]) This report is only to be considered final once signed by the Provider(s) as displayed in the "<Electronically Signed by >" field (s). Absence of a signature indicates the report is in a draft status and still needs to be finalized. In the event this document was created by someone other than the signing Provider, the individual initiating the document will be listed in the "Entered by:" or "Dictated by:" sexton. 1 of 1 Study data: Transthoracic echocardiogram. Procedure: Transthoracic echocardiography was performed. Image quality was fair. The study was technically limited due to body habitus. Complete 2D, spectral Doppler, and color flow Doppler. Location: Bedside. Patient status: Inpatient. Patient room number: 433. Rhythm: Atrial flutter. Findings Left ventricle: The cavity size is normal. Wall thickness is moderately increased. Systolic function is at the lower limits of normal. The estimated ejection fraction is 50-55%. Wall motion is normal; there are no regional wall motion abnormalities. Left ventricular diastolic function parameters are indeterminate. Right ventricle: The cavity size is moderately dilated. Wall thickness is moderately increased. Systolic function is normal. Systolic pressure is mildly increased. Ventricular septum: There is septal flattening of the interventricular septum consistent with RV volume or pressure overload. Left atrium: The atrium is severely dilated. Right atrium: The atrium is moderately to severely dilated. Mitral valve: The leaflets are mildly thickened. There is no evidence of stenosis. There is mild to moderate regurgitation. Aortic valve: The valve is trileaflet. The leaflets are moderately thickened. Thickening, consistent with sclerosis. There is no evidence of stenosis. There is no significant regurgitation. Tricuspid valve: The leaflets are normal thickness. There is no evidence of stenosis. There is trace to mild regurgitation. Pulmonic valve: The leaflets are normal thickness. There is no evidence of stenosis. There is trace regurgitation. Aorta: Aortic root: The aortic root is appears normal. Ascending aorta: The ascending aorta is mildly dilated. Aortic arch: The aortic arch is poorly visualized. Pericardium: A prominent pericardial fat pad is present. There is no significant pericardial effusion. Pulmonary arteries: The main pulmonary artery is normal-sized. Systolic pressure is mildly increased. Systemic veins: Inferior vena cava: The vessel is dilated. There is (< 50%) respiratory change in the IVC dimension. Measurements This report is only to be considered final once signed by the Provider(s) as displayed in the "<Electronically Signed by >" field (s). Absence of a signature indicates the report is in a draft status and still needs to be finalized. In the event this document was created by someone other than the signing Provider, the individual initiating the document will be listed in the "Entered by:" or "Dictated by:" sexton. EKG Data: 03/30/2019; Aflutter rate 77 with ventricular paced rhythm. Assessment/Plan #1; Symptomatic bradycardia; s/p Single chamber PPM implant 03/29/2019; device site intact, no pocket hematoma. Wound care/activity restrictions reviewed with the patient and his . He will go home on Keflex 250mg PO TIDx3 days then stop. f/u wound check arranged for next week with Dr. Alexandra. CXR was negative for pneumothorax. Today's device check was reviewed; Rv lead pacing threshold .75V@0.4ms. He may resume Eliquis tonight. #2 Persistant AFL; Chads Vasc >2 on eliquis therapy. May resume Eliquis tonight. #3 h/o HTN; Now on Norvasc therapy. #4 Disposition; Will sign off/ d/w Dr. Hughes who agrees with plan of care. Attending: Mery Hughes <Mery Hughes - Last Filed: 03/30/19 15:29> Subjective Interval History: Addendum: The patient was seen, examined by me personally. Overall feeling better post implant. Does not like immobilizer, uncomfortable. No SOB, not dizzy, walking in room well. Multiple questions answered from patient and . Pt with persistent flutter, tachy-shin s/p pacer implant after a syncopal episode. Incision clean. Thresholds excellent. Plan: As above f/u with Dr Alexandra for a wound check next week. F/u with Dr Pillai in a month. The patient does not wish to go out of [place] for pacer care/medical care. Objective Vital Signs: Temp Pulse Resp BP Pulse Ox 98 F 80 16 140/60 93 03/30/19 07:25 03/30/19 07:25 03/30/19 07:25 03/30/19 07:25 03/30/19 07:25 Laboratory Results: 03/27/19 12:30 03/28/19 06:34 INR (Anticoag Therapy) 1.33 (0.82-1.09) H 03/27/19 12:30 APTT 44.8 seconds (26.0-38.0) H 03/27/19 12:30 Total Bilirubin 0.60 mg/dL (0.2-1.0) 03/27/19 12:30 AST 16 U/L (13-39) 03/27/19 12:30 ALT 17 U/L (7-52) 03/27/19 12:30 Alkaline Phosphatase 103 U/L (34-104) 03/27/19 12:30 B-Natriuretic Peptide 59 pg/mL (<=100) 03/27/19 12:30 Total Protein 7.4 g/dL (6.4-8.9) 03/27/19 12:30 Albumin 4.3 g/dL (3.2-5.2) 03/27/19 12:30 Globulin 3.1 g/dL (2-4) 03/27/19 12:30 Albumin/Globulin Ratio 1.4 (1-3) 03/27/19 12:30 TSH 1.64 mcIU/mL (0.34-5.60) 03/27/19 12:30 03/27/19 12:30 Troponin I 0.01
--- NOTE | 2019-03-30 11:39 | DS ---
CC: Dr. Menjivar * DISCHARGE SUMMARY: DATE OF ADMISSION: 03/27/19 DATE OF DISCHARGE: 03/30/19 PRIMARY CARE PROVIDER: Dr. Menjivar. PRINCIPAL DIAGNOSIS: Syncope, possibly secondary to bradycardia. SECONDARY DIAGNOSES: 1. Hypertension. 2. Atrial fibrillation/flutter. 3. Obstructive sleep apnea. DISCHARGE MEDICATIONS: 1. Candesartan 32 mg p.o. daily. 2. Lipitor 20 mg p.o. daily. 3. Eliquis 5 mg p.o. b.i.d. 4. Tylenol plus Codeine 1 tab p.o. q.6 hours p.r.n. pain. 5. Amlodipine 5 mg p.o. daily (new). 6. Keflex 250 mg p.o. t.i.d. x10 doses. Discontinued medication: 1. Terazosin. HOSPITAL COURSE: Mr. Goodman is a 79-year-old male who presented to the emergency room with complaints of passing out. The patient reported bending down to pick something up and when he was straightening himself up, he started to feel dizzy and subsequently passed out. The patient was admitted for evaluation of syncope. In the emergency room, his heart rate was found to go as low as in the 30s. He was seen in consultation on 03/28/19 by Cardiology, who recommended the patient undergo permanent pacemaker insertion. On 03/29/19, the patient underwent pacemaker insertion. He has since been doing well. He has had no complaints of dizziness or lightheadedness. He has been up and ambulating without any difficulty. The patient will continue on Keflex 250 mg p.o. t.i.d. x10 more doses. He is to follow up with Dr. Alexandra on 04/06/19 at 4 p.m. Of note, the patient's terazosin was discontinued as it can cause orthostatic hypotension and amlodipine was added in its place. The patient's blood pressure is under decent control on the regimen of amlodipine and candesartan. FOLLOWUP CONCERNS: The patient is being discharged home today 03/30/19. ACTIVITY LEVEL: As tolerated. DIET: Heart healthy. CONDITION ON DISCHARGE: Stable. The patient is to follow up with Dr. Menjivar on 04/01/19 at 11 a.m., with Dr. Alexandra on 02/19/20 at 4 p.m. TIME SPENT: 35 minutes was spent discharging this patient. [id number]/[facility] #: [id number] ELEANOR
--- NOTE | 2019-03-30 21:34 | OP ---
CC: Dr. David Smith, [facility] * DATE OF OPERATION: 03/29/19 - ROOM #433 DATE OF : 42 SURGEON: Fish Alexandra MD ANESTHESIA: Local anesthesia with conscious sedation. PRE-OP DIAGNOSES: 1. Atrial fibrillation. 2. Tachybrady syndrome. POST-OP DIAGNOSES: 1. Atrial fibrillation. 2. Tachybrady syndrome. OPERATIVE PROCEDURE: Single-chamber pacemaker implantation. INDICATIONS: The patient is a gentleman with a history of chronic atrial fibrillation. The patient has documented tachybrady syndrome. The patient did have a syncopal episode consistent with bradycardia. Permanent pacemaker was recommended. ESTIMATED BLOOD LOSS: Nil. COMPLICATIONS: None. DESCRIPTION OF PROCEDURE: The patient was in a fasting state. Informed consent had been obtained prior to the procedure. All labs reviewed. The patient was placed supine on the procedure table. His left deltopectoral area was cleaned and draped in the usual fashion. 1% lidocaine was used for local anesthesia. The axillary vein was entered via Seldinger technique using ultrasound guidance and a guidewire was placed. A 3.5-cm incision was made in the pectoral area. Blunt dissection was carried down to the pectoral fascia and a pocket was fashioned for the pacemaker. Over the guidewire, a 7-Brazilian sheath introducer was placed, through which a right ventricular lead was advanced to the RV apex. The right ventricular lead is a [employer], model 2088TC, serial number [id number]. It had an R-wave sensitivity of 4.5 volts, impedance 730 ohms, threshold 0.75 volts at 0.4 milliseconds. The ventricular lead was sutured to the pectoral fascia. The pocket was flushed. A generator was attached appropriately to the ventricular lead. The generator is a [employer] model number [id number], serial number [id number]. The device was placed into pocket. Surgical incision was closed in 3 layers. The patient was returned to the holding area in stable condition. [id number]/[facility] #: [id number] [facility]
[2019-03-31] MEDS ORDERED: Cephalexin CAP* 250 MG PO SCH (07:00)
== END 2019-03-30 11:36 | disposition home or self-care (01) | DRG 243 ==
LOC: ED 13:28 → MEDTELE 16:46 → OBSVTOIN 03-28 11:00
PROVIDERS: ADMIT Internal Medicine; ATTEND Hospitalist
PROC: 02HK3JZ Insertion of Pacemaker Lead into Right Ventricle, Percutaneous Approach (ICD-10-PCS; 2019-03-29)
PROC: 0JH604Z Insertion of Pacemaker, Single Chamber into Chest Subcutaneous Tissue and Fascia, Open Approach (ICD-10-PCS; principal; 2019-03-29 10:00)
DX: I49.5 Sick sinus syndrome (principal); I48.92 Unspecified atrial flutter; I48.19 Other persistent atrial fibrillation; I10 Essential (primary) hypertension; F41.9 Anxiety disorder, unspecified; D64.9 Anemia, unspecified; G47.33 Obstructive sleep apnea (adult) (pediatric); E78.5 Hyperlipidemia, unspecified; I44.0 Atrioventricular block, first degree; Z99.89 Dependence on other enabling machines and devices; Z85.828 Personal history of other malignant neoplasm of skin; Z87.891 Personal history of nicotine dependence; Z79.01 Long term (current) use of anticoagulants; Z79.899 Other long term (current) drug therapy
CPT/HCPCS: 33207; 36415; 70450; 71045; 71046; 80048; 80053; 80320; 81003; 81015; 82550; 83605; 83735; 83880; 84443; 84484; 85025; 85610; 85730; 93005; 93306; 99156; 99157; 99284; A9270-GY; C1786; C1892; C1898; G0378; G0480; J0690; J1644; J2250; J2310; J3010